=== PATIENT | female | born 1940 | race Caucasian/White ===

== ENCOUNTER 2018-01-05 12:44 | Inpatient (IN) | payer MEDICARE ==
[~2018-01-05] VITALS: Ht 149.9 cm; Wt 89.6 kg
[2018-01-05] VITALS (12 sets, daily range): BP systolic 100–138; BP diastolic 52–79
[~2018-01-05 12:44] MED LIST: DIPHENHYDRAM25 M2 PO; FIORICET PO; FLEXERIL OR; LISINOPRIL10 MG PO; LISINOPRIL20 MG PO; NEXIUM40 M1 PO; TAM75CAP PO; ULTRAM50 M1 PO; ULTRAM50 MG PO; ZOFRAN ODT4 MG PO
--- NOTE | 2018-01-05 12:56 | NUR ---
PT ARRIVES BY EMS, HR 143.
[2018-01-05 13:24] LABS: IMMATURE GRANULOCYTES 0.1 % (0.0-1.0); MEAN CORPUSCULAR HGB 27.4 pG CALC (26.0-32.0); MEAN CORPUSCULAR HGB CONC 32.6 g/L CALC (32.0-36.0); RED BLOOD COUNT 4.89 mill/uL (4.20-5.60); RED CELL DISTRI WIDTH 14.1 % (11.5-15.5)
[2018-01-05 13:33] LABS: ACT PARTIAL THROMBO TIME 28.8 SECONDS (20.0-32.5); ALBUMIN 4.1 g/dL (3.2-5.0); ALKALINE PHOSPHATASE 96 u/l (38-126); ANION GAP 17 (6-22 (CALC)); BILIRUBIN, TOTAL 0.4 mg/dL (0.0-1.4); BUN 14 mg/dL (8-23); BUN/CREATININE RATIO 20 (12-20 (CALC)); CARBON DIOXIDE 25 mmol/l (22-30); CHLORIDE 105 mmol/l (95-108); CREATININE 0.7 mg/dL (0.5-1.0); GFR > 60 ML/MIN (>=60 (CALC)); GFR FOR AFR.AMER. > 60 ML/MIN (>=60 (CALC)); HEMATOCRIT 41.1 % (37.0-47.0); HEMOGLOBIN 13.4 g/dl (12.0-16.0); INTERNATIONAL NORMALIZED RATIO 0.9 RATIO (0.7-1.3); PROTHROMBIN TIME 10.3 SECONDS (9.0-12.5); SGOT/AST 23 u/l (9-36); SGPT/ALT 27 u/l (11-66); SODIUM 143 mmol/l (137-146); TOTAL PROTEIN 7.6 g/dL (6.3-8.2)
[2018-01-05 13:34] LABS: POTASSIUM 3.8 mmol/l (3.5-5.1)
--- NOTE | 2018-01-05 13:39 | NUR ---
2ND IV ESTABLISHED. LABS DRAWN. EKG COMPLETE. PORT XR COMPLETE. PT STATES 955 O2 IS "GOOD FOR HER", PLACED ON 2L NC. PT STATES SHE IS UNDER "EXTRA STRESS AT HOME". PT C/O CP, SOB, NAUSEA, VOMITING, INCREASED HR SINCE 0900 THIS AM. PT TOOK NITRO x3, TYLENOL x2, 5MG VALIUM PRIOR TO EMS ARRIVAL. EMS GAVE 20MG CARDIZEM, PLACED PT ON 4L NC. BGL 126. PT DENIES PAIN SINCE CARDIZEM GIVEN BY EMS. PT TALKATIVE/ALERT WITH STAFF. 1+ EDEMA TO BILATERAL LEGS. SKIN DRY/WARM. BREATHING EVEN/UNLABORED. MILD CRACKLES AT BASE OF BOTH LUNGS. ABD OBESE, SOFT/NONTENDER.
[2018-01-05 13:45] LABS: MYOGLOBIN 37 ng/mL (0 - 62)
--- NOTE | 2018-01-05 14:26 | NUR ---
CARDIZEM TITRATED TO 12MG/HR. HR IN 120'S-130'S.
--- NOTE | 2018-01-05 14:26 | NUR ---
PT C/O NC TICKLING NOSE. O2 BUMPED DOWN TO 1L. DAUGHTER AT BEDSIDE. PT HAS A DNR THAT NEEDS SIGNATURES. DAUGHTER IS TAKING IT HOME TO COMPLETE IT & WILL BRING IT BACK.
[2018-01-05] MEDS ORDERED: DITROPAN PO (15:14)
--- NOTE | 2018-01-05 15:20 | NUR ---
Admission Note Report Given to: AZEEM Transported by: Wheelchair X Stretcher Transported with: X Nurse Transporter X Patent IV X O2 X Tanning Salon Attendant
--- NOTE | 2018-01-05 15:40 | NUR ---
PT TRANSFERED TO ICU 2 BY STRETCHER WITH TELE IN STABLE CONDITION.
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
--- NOTE | 2018-01-05 16:00 | NUR ---
PT RESTING ICE WATER PROVIDED FAMILY MEMBERS REMAIN AT BEDSIDE
--- NOTE | 2018-01-05 16:40 | NUR ---
INTO SEE PATIENT, PLAN OF CARE DISCUSSED, OFFERS NO COMPLAINTS OF PAIN, CALL WELLS WITHIN REACH, EDUCATED REGARDING MEAL TIMES AND DINNER TRAY ORDERED, WILL CONTINUE TO MONITOR.
--- NOTE | 2018-01-05 17:09 | NUR ---
FAMILY LEFT AT THIS TIME, PLACED PT ON BED GAINES, PT ABLE TO ROLL WELL IN BED ASKING TO STAY ON GAINES FOR A FEW MINUTES, CALL WELLS WITHIN REACH.
--- NOTE | 2018-01-05 17:15 | NUR ---
RAGHU CARE PROVIDED, PT REPOSITIONED FOR COMFORT AND SET UP ASSIST PROVIDED FRO PM MEAL, CALL WELLS WITHIN REACH
--- NOTE | 2018-01-05 17:52 | NUR ---
PT OOB TO BSC WITH ONE MOD ASSIST, CALL WELLS WITHIN REACH, INSTRUCTED TO CALL FOR ASSIST WHEN COMPLETE
--- NOTE | 2018-01-05 18:00 | NUR ---
PT BACK TO BED WITH ONE MOD ASSIST, CONTINENT OF 200 ML YELLOW URINE, SELF RAGHU CARE COMPLETED, REPOSITIONED FOR COMFORT, CALL WELLS WITHIN REACH, WILL CONTINUE TO MONITOR.
--- NOTE | 2018-01-05 18:30 | NUR ---
FAMILY MEMBER AT BEDSIDE, CALL WELLS WITHIN REACH.
--- NOTE | 2018-01-05 18:45 | NUR ---
REPORT FROM JORDYN GANN. ASSUMED PT. CARE.
--- NOTE | 2018-01-05 19:30 | NUR ---
PT. FOUND AWAKE, ALERT, ORIENTED X 3. SKIN WARM AND DRY. GIOVANY. AFEBRILE. PT. ASSISTED TO BSC. APPROX 250 CC OUT AT THIS TIME. MODERATE INCONTINENCE OF URINE NOTED AT THIS TIME. ALL LINENS AND GOWN CHANGED.
--- NOTE | 2018-01-05 20:00 | NUR ---
CARDIZEM DRIP INCREASED TO 15 MG/HR AT THIS TIME HR REMAINS IN THE UPPER 90-110'S IN A-RIB. WILL CONTINUE TO ASSESS FOR TITRATION NEEDS AND RHYTHM CHANGES. DENIES OTHER COMPLAINTS AT THIS TIME. WILL NOTIFY PHYSICIAN OF REQUEST FOR OXYBUTYNIN AND TYLENOL.
--- NOTE | 2018-01-05 20:53 | NUR ---
LAB AT BEDSIDE AT THIS TIME FOR PTT CHECK. WILL ADJUST NECESSARY.
--- NOTE | 2018-01-05 21:07 | NUR ---
PT. MEDICATED PER PROVIDER ORDERS. PROVIDED WITH FANNY MESSER. WATER FRESHED UP. OFFERED BSC, DECLINES AT THIS TIME. DENIES OTHER COMPLAINTS OR NEEDS.
--- NOTE | 2018-01-05 22:15 | NUR ---
PT. RESTING IN BED WITH EYES CLOSED. DENIES COMPLAINTS OF PAIN OR NEED. RESPS EVEN AND UNLABORED. SKIN WARM AND DRY. REMAINS A-FIB RATE CONTROLLED IN THE 70-90'S. CARDIZEM DRIP CONTINUES AT 15 MG/HR. WILL CONTINUE TO MONITOR.
--- NOTE | 2018-01-05 23:28 | NUR ---
PT. ASSISTED TO BSC. WITH EXERTION, PT. HR. ELEVATED TO 100-110'S A-FIB. REMAINS ON CARDIZEM DRIP AT 15 MG/HR. PT. AMBULATORY WITH MIN ASSIST TO BSC. APPROX 250 CC URINE OUT AT THIS TIME. DENIES COMPLAINTS OF PAIN OR NEED AT THIS TIME.
[2018-01-06] VITALS (11 sets, daily range): BP systolic 106–143; BP diastolic 62–79
--- NOTE | 2018-01-06 01:30 | NUR ---
PT. CONVERTED TO SINUS RHYTHM. RATE IN THE UPPER 50'S. RT. CALLED FOR EKG AT THIS TIME.
--- NOTE | 2018-01-06 02:00 | NUR ---
PT. ASSISTED TO BSC. APPROX 200 CC URINE OUT AT THIS TIME. MEDICATED FOR 6/10 BACK PAIN. WILL CONTINUE TO MONITOR. REMAINS SINUS RHTYHM AT THIS TIME.
[2018-01-06 03:10] LABS: HEMOGLOBIN 12.5 g/dl (12.0-16.0); IMMATURE GRANULOCYTES 0.2 % (0.0-1.0); MEAN CELL VOLUME 85.2 fL CALC (80.0-100.0); MEAN CORPUSCULAR HGB 27.3 pG CALC (26.0-32.0); MEAN CORPUSCULAR HGB CONC 32.1 g/L CALC (32.0-36.0); NEUT# 2.72 thou/uL (2.00-7.15); RED BLOOD COUNT 4.58 mill/uL (4.20-5.60); RED CELL DISTRI WIDTH 14.3 % (11.5-15.5)
[2018-01-06 03:24] LABS: ALBUMIN 3.5 g/dL (3.2-5.0); ALKALINE PHOSPHATASE 94 u/l (38-126); ANION GAP 15 (6-22 (CALC)); BILIRUBIN, TOTAL 0.5 mg/dL (0.0-1.4); BUN 12 mg/dL (8-23); BUN/CREATININE RATIO 20 (12-20 (CALC)); CARBON DIOXIDE 25 mmol/l (22-30); CHLORIDE 106 mmol/l (95-108); CREATININE 0.6 mg/dL (0.5-1.0); GFR > 60 ML/MIN (>=60 (CALC)); GFR FOR AFR.AMER. > 60 ML/MIN (>=60 (CALC)); POTASSIUM 3.8 mmol/l (3.5-5.1); SGOT/AST 19 u/l (9-36); SGPT/ALT 25 u/l (11-66); SODIUM 142 mmol/l (137-146); TOTAL PROTEIN 6.4 g/dL (6.3-8.2)
--- NOTE | 2018-01-06 08:38 | NUR ---
PT IS AWAKE, ALERT, ORIENTED X 3. MONITOR SHOWS SINUS RHYTHM WITHOUT ECTOPY, RATE OF 70. LUNGS CLEAR, ABDOMEN SOFT AND NONTENDER, PALPABLE PEDAL PULSES WITH MINIMAL EDEMA. PT SEEN BY RHIANNA GREEN THIS MORNING, PLAN OF CARE REVIEWED.
[2018-01-06 10:21] LABS: HEMATOCRIT 39.9 % (37.0-47.0); HEMOGLOBIN 12.6 g/dl (12.0-16.0); IMMATURE GRANULOCYTES 0.2 % (0.0-1.0); MEAN CORPUSCULAR HGB 27.2 pG CALC (26.0-32.0); MEAN CORPUSCULAR HGB CONC 31.6 g/L CALC (32.0-36.0); NEUT# 2.87 thou/uL (2.00-7.15); RED BLOOD COUNT 4.64 mill/uL (4.20-5.60); RED CELL DISTRI WIDTH 14.4 % (11.5-15.5)
--- NOTE | 2018-01-06 10:33 | NUR ---
LOPRESSOR PROVIDED THIS MORNING, THEN CARDIZEM DRIP WAS DISCONTINUED. PT HAS REMAINED IN SINUS RHYTHM, RATE 62. PT HAS ALSO WASHED UP THIS MORNING, GOWN CHANGED.
--- NOTE | 2018-01-06 11:16 | NUR ---
PT SEEN BY DR SPENCE THIS AM, PLAN IS TO DISCHARGE PT HOME PER REGULAR RHYTHM AND NO NEED FOR ANTICOAGULATION. PT PLEASED SHE CARES FOR HER AILING AT HOME. NO DISTRESS, NO COMPLAINTS.
[2018-01-06] MEDS ORDERED: ELIQUIS2.5 MG PO (11:37)
[2018-01-06] MEDS ORDERED: LOPRESSOR25 MG PO (11:38)
--- NOTE | 2018-01-06 12:43 | NUR ---
PT HAS BEEN DISCHARGED TO HOME. IVs WERE DISCONTINUED, MONITORS REMOVED. PT VERBALIZED UNDERSTANDING OF DC INSTRUCTIONS, TAKEN TO VEHICLE BY WHEELCHAIR. PT LEAVES IN STABLE CONDITION, NSR.
== END 2018-01-06 12:40 | disposition home or self-care (01) | DRG 310 ==
LOC: ED 12:44 → ED-I 14:40 → ED 15:04 → ICU 15:05
PROVIDERS: ADMIT Internal Medicine; ATTEND Internal Medicine
PROC: 3E0234Z Introduction of Serum, Toxoid and Vaccine into Muscle, Percutaneous Approach (ICD-10-PCS; principal; 2018-01-06)
DX: I48.0 Paroxysmal atrial fibrillation (principal); I10 Essential (primary) hypertension; K21.9 Gastro-esophageal reflux disease without esophagitis; J11.1 Influenza due to unidentified influenza virus with other respiratory manifestations; Z23 Encounter for immunization

== ENCOUNTER 2019-02-04 15:46 | Observation (INO) | payer OTHER ==
[~2019-02-04] VITALS: Ht 149.9 cm; Wt 84.5 kg
[2019-02-04] VITALS (17 sets, daily range): BP systolic 101–154; BP diastolic 56–83
[~2019-02-04 15:46] MED LIST changes: +DITROPAN PO; +ELIQUIS2.5 MG PO; +LOPRESSOR25 MG PO
--- NOTE | 2019-02-04 15:46 | NUR ---
PT TO ROOM VIA EMS
[2019-02-04 16:23] LABS: HEMATOCRIT 40.2 % (37.0-47.0); HEMOGLOBIN 12.9 g/dl (12.0-16.0); IMMATURE GRANULOCYTES 0.3 % (0.0-5.0); MEAN CELL VOLUME 83.6 fL CALC (80.0-100.0); MEAN CORPUSCULAR HGB 26.8 pG CALC (26.0-32.0); MEAN CORPUSCULAR HGB CONC 32.1 g/L CALC (32.0-36.0); NEUT# 4.19 thou/uL (2.00-7.15); RED BLOOD COUNT 4.81 mill/uL (4.20-5.60); RED CELL DISTRI WIDTH 13.8 % (11.5-15.5)
--- NOTE | 2019-02-04 16:25 | NUR ---
PT PROVIDED CARDIZEM 10 MG BOLUS FROM BAG, NOW DRIP CONTINUES AT 10 MG/HR. HR 105-115 NOW.
[2019-02-04 16:34] LABS: ANION GAP 15 (6-22 (CALC)); BUN 10 mg/dL (8-23); BUN/CREATININE RATIO 16 (12-20 (CALC)); CARBON DIOXIDE 24 mmol/l (22-30); CHLORIDE 106 mmol/l (95-108); CREATININE 0.6 mg/dL (0.5-1.0); GFR > 60 ML/MIN (>=60 (CALC)); GFR FOR AFR.AMER. > 60 ML/MIN (>=60 (CALC)); POTASSIUM 3.6 mmol/l (3.5-5.1); SODIUM 142 mmol/l (137-146)
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
--- NOTE | 2019-02-04 18:25 | NUR ---
REPORT PROVIDED TO MADIHA FOX TAKEN TO ICU-1 WITHOUT INCIDENT.
--- NOTE | 2019-02-04 18:30 | NUR ---
TITRATED CARDIZEM PER TITRATION RECORD TO 5MG.
--- NOTE | 2019-02-04 18:41 | NUR ---
PHARMACY CONSULT PLACED. PT STATES SHE DOES NOT KNOW HER HOME MEDS.
--- NOTE | 2019-02-04 19:12 | NUR ---
BEDSIDE REPORT RECEIVED FROM JORDYN FOX. PT CURRENTLY AFIB ON TELE RATE OF 95.
--- NOTE | 2019-02-04 20:06 | NUR ---
ASSESSMENT COMPLETE. PT UP TO BSC X 1 PERSON ASSIST; INCONTINENT OF LARGE AMOUNT OF URINE; USES PULL UP BRIEF. STATES THAT HEADACHE IS BETTER AND DENIES PAIN CURRENTLY. RESPIRATIONS EVEN AND UNLABORED ON ROOM AIR. CARDIZEM INFUSING AT 5MG/HR ALONG WITH MAINENANCE FLUIDS; EMS IV SITE APPEARS HEALTHY TO LAC. ASSESSMENT NEGATIVE EXCEPT FOR IRREGULAR HEART RATE AND TENDERNESS TO LEGS WITH PALPATION. PLAN OF CARE REVIEWED. PT ENCOURAGED TO VERBALIZE CONCERNS. STATES UNDERSTANDING. SAFETY MEASURES IN PLACE. CALL LIGHT WITHIN REACH.
--- NOTE | 2019-02-04 21:44 | NUR ---
VS STABLE; MONITORING HOURLY. PT TALKATIVE ABOUT FAMILY. ASSISTED WITH REPOSITIONING FOR COMFORT. ONLY REQUEST IS FOR WATER AT BEDSIDE FOR DRY MOUTH R/T HOME MEDICATION.
--- NOTE | 2019-02-04 23:52 | NUR ---
PT REQUESTING TO SIT UP IN HIGHER IN THE BED STATING THAT SHE ONLY SLEEPS A FEW HOURS AT A TIME. DENIES PAIN. RESPIRATIONS EVEN AND UNLABORED ON ROOM AIR. REMAINS AFIB ON TELEMETRY. CARDIZEM CONTINUES TO INFUSE AT 5MG/HR; IV SITE APPEARS HEALTHY. SAFETY MEASURES IN PLACE. CALL LIGHT WITHIN REACH.
[2019-02-05] VITALS (20 sets, daily range): BP systolic 115–169; BP diastolic 56–75
--- NOTE | 2019-02-05 00:29 | NUR ---
CARDIZEM DRIP TITRATED DOWN TO 2.5MG/HR FOR HEART RATE OF 60 BPM. WILL CONTINUE TO MONITOR.
--- NOTE | 2019-02-05 00:51 | NUR ---
HEART RATE REMAINS 60-63; CARDIZEM DRIP DISCONTINUED. PT WATCHING TV AND NO SIGNS OF DISTRESS.
--- NOTE | 2019-02-05 00:55 | NUR ---
HEART RHYTHM CONVERTED TO SINUS RHYTHM; RATE OF 60 BPM.
--- NOTE | 2019-02-05 02:20 | NUR ---
PT ASLEEP WITH NO SIGNS OF DISTRESS. RESPIRATIONS EVEN AND UNLABORED ON ROOM AIR. 95% ON ROOM AIR. VS STABLE. SINUS RHYTHM ON TELE. SAFETY MEASURES IN PLACE. CALL LIGHT WITHIN REACH.
--- NOTE | 2019-02-05 03:21 | NUR ---
INCONTINENT OF LARGE AMOUNT OF URINE; ASSISTED TO BSC FOR HYGIENE. PT IS ONE PERSON ASSIST; VERY SLOW WITH MOVEMENTS; REPORTS THAT SHE USES A WHEELCHAIR AND WALKER AT HOME. STATES THAT SHE HAS ONLY FALLEN ONCE IN THE LAST 3 YEARS.
--- NOTE | 2019-02-05 04:42 | NUR ---
LAB AT BEDSIDE.
[2019-02-05 05:03] LABS: HEMOGLOBIN 11.6 g/dl (12.0-16.0); IMMATURE GRANULOCYTES 0.2 % (0.0-5.0); MEAN CELL VOLUME 84.9 fL CALC (80.0-100.0); MEAN CORPUSCULAR HGB 26.6 pG CALC (26.0-32.0); MEAN CORPUSCULAR HGB CONC 31.4 g/L CALC (32.0-36.0); NEUT# 3.18 thou/uL (2.00-7.15); RED BLOOD COUNT 4.36 mill/uL (4.20-5.60)
[2019-02-05 05:35] LABS: ALBUMIN 3.8 g/dL (3.2-5.0); ALKALINE PHOSPHATASE 74 u/l (38-126); ANION GAP 13 (6-22 (CALC)); BILIRUBIN, TOTAL 0.5 mg/dL (0.0-1.4); BUN 14 mg/dL (8-23); BUN/CREATININE RATIO 20 (12-20 (CALC)); CARBON DIOXIDE 25 mmol/l (22-30); CHLORIDE 107 mmol/l (95-108); CREATININE 0.7 mg/dL (0.5-1.0); GFR > 60 ML/MIN (>=60 (CALC)); GFR FOR AFR.AMER. > 60 ML/MIN (>=60 (CALC)); MAGNESIUM 1.9 mg/dL (1.6-2.3); POTASSIUM 4.3 mmol/l (3.5-5.1); SGOT/AST 13 u/l (9-36); SODIUM 140 mmol/l (137-146); TOTAL PROTEIN 6.2 g/dL (6.3-8.2)
--- NOTE | 2019-02-05 06:18 | NUR ---
PT SITTING UP IN BED WATCHING TV; ALERT AND ORIENTED. DENIES PAIN. RESPIRATIONS EVEN AND UNLABORED ON ROOM AIR. NO REQUESTS OR CONCERNS AT THIS TIME. SAFETY MEASURES IN PLACE. CALL LIGHT WITHIN REACH.
--- NOTE | 2019-02-05 07:11 | NUR ---
PT ASSISTED UP TO BSC WITH MINIMAL ASSISTANCE. PT STATES SHES SLOW MOVING BUT SHE CAN DO IT.
--- NOTE | 2019-02-05 07:24 | NUR ---
PT A&Ox4. PLEASANT, COOPERATIVE. DENIES ANY PAIN. KENDRICK, BUT IS SLOW MOVING. STRONG PULSES. OBESE BUT NO EDEMA. -3 SEC CAP REFILL. SR ON TELE @63. SPEECH CLEAR. EYES PERRLA @3. ABD SOFT/NONTENDER. DENIES N/V/D. ACTIVE BS. BREATHING EVEN/UNLABORED, LUNGS CTA. PT STATES SHE IS READY TO GO HOME TODAY. PT GIVEN DR XIONG'S INFORMATION.
--- NOTE | 2019-02-05 09:02 | NUR ---
PT SITTING UP ON BSC. GIVING SELF BATH, BRUSHING TEETH.
--- NOTE | 2019-02-05 09:31 | NUR ---
DR MILLER @BEDSIDE WITH PT.
--- NOTE | 2019-02-05 09:37 | NUR ---
PHARMACY @BEDSIDE WITH PT.
[2019-02-05] MEDS ORDERED: LOPRESSOR 550 MG/TAB PO (10:01)
[2019-02-05] MEDS ORDERED: PANTOPRAZOLE SO40 M1 PO (10:01)
[2019-02-05] MEDS ORDERED: ELIQUIS2.5 MG PO (10:01)
--- NOTE | 2019-02-05 10:20 | NUR ---
XI @[facility]
--- NOTE | 2019-02-05 10:48 | NUR ---
IV DC'D, TIP INTACT, DRESSING APPLIED. PT STATES HER SON WONT BE ABLE TO COME GET HER UNTIL NOON. PT LEFT ON MONITORS AT THIS TIME. PT IS VERY TALKATIVE.
--- NOTE | 2019-02-05 10:59 | NUR ---
PT ASSISTED UP TO BSC FOR URINATION, USING WALKER.
--- NOTE | 2019-02-05 11:29 | NUR ---
PT SITTING ON SIDE OF BED, EATING LUNCH. CHANGED FROM GOWN TO PERSONAL CLOTHES WITH MINIMAL HELP. EDUCATED PT ON DC INSTRUCTIONS, INCLUDING NEW RX & STOP LISINOPRIL, & F/UP WITH CARDIO. PT VERBALIZED UNDERSTANDING.
--- NOTE | 2019-02-05 12:10 | NUR ---
PT OUT THE DOOR WITH AUX BY WC WITH SON IN STABLE CONDITION.
== END 2019-02-05 12:10 | disposition home or self-care (01) ==
LOC: ED 15:46 → ED-I 17:03 → ED 17:26 → ICU 17:27
PROVIDERS: Family Medicine; ADMIT Internal Medicine Nephrology; ATTEND Internal Medicine Nephrology
DX: I48.0 Paroxysmal atrial fibrillation (principal); I10 Essential (primary) hypertension; K21.9 Gastro-esophageal reflux disease without esophagitis; R53.1 Weakness; E66.9 Obesity, unspecified; M19.90 Unspecified osteoarthritis, unspecified site; Z68.37 Body mass index [BMI] 37.0-37.9, adult; Z98.890 Other specified postprocedural states; R07.9 Chest pain, unspecified

== ENCOUNTER 2019-07-10 11:23 | Emergency (ER) | payer MEDICAID ==
[~2019-07-10] VITALS: Ht 149.9 cm; Wt 65.0 kg
[~2019-07-10 11:23] MED LIST changes: +LOPRESSOR 550 MG/TAB PO; +PANTOPRAZOLE SO40 M1 PO
[2019-07-10 12:11] LABS: URINE BILIRUBIN - DIPSTICK NEGATIVE (NEGATIVE); URINE BLOOD DIPSTICK NEGATIVE (NEGATIVE); URINE COLOR YELLOW; URINE GLUCOSE - DIPSTICK NEGATIVE (NEGATIVE); URINE KETONE NEGATIVE (NEGATIVE); URINE LEUK ESTERASE NEGATIVE (NEGATIVE); URINE NITRITE - DIPSTICK NEGATIVE (Negative); URINE PROTEIN - DIPSTICK NEGATIVE (NEG-TRACE); URINE SPECIFIC GRAVITY 1.025; URINE UROBILINOGEN - DIPSTICK 0.2 E.U./dL (0.2)
[2019-07-10] MEDS ORDERED: BACTRIM DS1 TAB PO (12:25)
[2019-07-10 12:31] VITALS: BP 147/88
== END 2019-07-10 12:31 | disposition home or self-care (01) ==
LOC: ED 11:23
PROVIDERS: Family Medicine
DX: N32.81 Overactive bladder (principal); K05.10 Chronic gingivitis, plaque induced; I10 Essential (primary) hypertension

== ENCOUNTER 2020-03-27 07:20 | Day surgery (SDC) | payer MEDICARE, MEDICAID ==
[~2020-03-27] VITALS: Ht 149.9 cm; Wt 84.0 kg
[~2020-03-27 07:20] MED LIST changes: +ACETAMINOPHEN500 MG PO; +ASPIRIN81 MG PO; +BACTRIM DS1 TAB PO; +DILTIAZEM90 M1 PO; -DITROPAN PO; +DITROPAN5 MG/TA1 PO; +MYRBETRIQ50 MG PO; +PROTONIX40 M2 PO
[2020-03-27] MEDS ORDERED: ADULT ASPIRIN R81 MG PO (09:55)
[2020-03-27 10:20] VITALS: BP 177/80
== END 2020-03-27 10:50 | disposition home or self-care (01) ==
LOC: ORM 07:20
PROVIDERS: ATTEND Urology
PROC: 3E0K8GC Introduction of Other Therapeutic Substance into Genitourinary Tract, Via Natural or Artificial Opening Endoscopic (ICD-10-PCS; principal; 2020-03-27)
DX: N39.46 Mixed incontinence (principal); N32.81 Overactive bladder; E66.9 Obesity, unspecified; Z68.36 Body mass index [BMI] 36.0-36.9, adult; Z79.899 Other long term (current) drug therapy; Z87.440 Personal history of urinary (tract) infections; Z11.59 Encounter for screening for other viral diseases
CPT/HCPCS: J0585; J1100

== ENCOUNTER 2020-04-10 10:05 | Emergency (ER) | payer MEDICARE, MEDICAID ==
[~2020-04-10] VITALS: Ht 149.9 cm; Wt 85.0 kg
[~2020-04-10 10:05] MED LIST changes: +ADULT ASPIRIN R81 MG PO
[2020-04-10 10:48] LABS: HEMATOCRIT 39.1 % (37.0-47.0); IMMATURE GRANULOCYTES 0.6 % (0.0-5.0); MEAN CELL VOLUME 84.8 fL CALC (80.0-100.0); MEAN CORPUSCULAR HGB CONC 30.7 g/dL CAL (32.0-36.0); NEUT# 6.45 thou/uL (2.00-7.15); RED BLOOD COUNT 4.61 mill/uL (4.20-5.60); RED CELL DISTRI WIDTH 14.3 % (11.5-15.5)
[2020-04-10 10:59] LABS: ALBUMIN 4.3 g/dL (3.2-5.0); ANION GAP 13 (6-22 (CALC)); BILIRUBIN, TOTAL 0.6 mg/dL (0.0-1.4); BUN 14 mg/dL (8-23); BUN/CREATININE RATIO 22 (12-20 (CALC)); CARBON DIOXIDE 23 mmol/l (22-30); CHLORIDE 105 mmol/l (95-108); CREATININE 0.6 mg/dL (0.5-1.0); GFR > 60 ML/MIN (>=60 (CALC)); GFR FOR AFR.AMER. > 60 ML/MIN (>=60 (CALC)); POTASSIUM 3.8 mmol/l (3.5-5.1); SODIUM 137 mmol/l (137-146); TOTAL PROTEIN 7.2 g/dL (6.3-8.2)
[2020-04-10 11:01] LABS: ALKALINE PHOSPHATASE 155 u/l (38-126); SGOT/AST 29 u/l (9-36)
[2020-04-10 11:09] LABS: URINE BILIRUBIN - DIPSTICK NEGATIVE (NEGATIVE); URINE BLOOD DIPSTICK TRACE-LYSED (NEGATIVE); URINE COLOR YELLOW; URINE GLUCOSE - DIPSTICK NEGATIVE (NEGATIVE); URINE KETONE NEGATIVE (NEGATIVE); URINE LEUK ESTERASE NEGATIVE (NEGATIVE); URINE NITRITE - DIPSTICK NEGATIVE (Negative); URINE PH 5.5 (4.5-8.0); URINE PROTEIN - DIPSTICK NEGATIVE (NEG-TRACE); URINE UROBILINOGEN - DIPSTICK 0.2 E.U./dL (0.2)
[2020-04-10] MEDS ORDERED: AUGMENTIN500TAB PO (11:34)
[2020-04-10] MEDS ORDERED: OMNI-PAC300 MG PO (11:37)
[2020-04-10] MEDS ORDERED: PYRIDIUM200 MG PO ×2 (12:08)
[2020-04-10 12:20] VITALS: BP 166/72
== END 2020-04-10 12:20 | disposition home or self-care (01) ==
LOC: ED 10:05
PROVIDERS: Family Medicine
DX: N39.0 Urinary tract infection, site not specified (principal); B96.5 Pseudomonas (aeruginosa) (mallei) (pseudomallei) as the cause of diseases classified elsewhere; I10 Essential (primary) hypertension; Z20.828 Contact with and (suspected) exposure to other viral communicable diseases; R06.02 Shortness of breath

== ENCOUNTER 2020-05-10 19:54 | Inpatient (IN) | payer MEDICARE, MEDICAID ==
[~2020-05-10] VITALS: Ht 149.9 cm; Wt 94.3 kg
[~2020-05-10 19:54] MED LIST changes: +AUGMENTIN500TAB PO; +OMNI-PAC300 MG PO; +PYRIDIUM200 MG PO
--- NOTE | 2020-05-10 19:55 | NUR ---
PATIENT TO ROOM 10 VIA EMS STRETCHER. UNDRESSED INTO A GOWN. TRIAGE COMPLETED AT BEDSIDE. PATIENT PLACED ON MONITOR. MD AT BEDSIDE FOR EVAL.
[2020-05-10 20:48] LABS: HEMATOCRIT 41.9 % (37.0-47.0); HEMOGLOBIN 12.8 g/dl (12.0-16.0); IMMATURE GRANULOCYTES 0.3 % (0.0-5.0); MEAN CELL VOLUME 84.6 fL CALC (80.0-100.0); MEAN CORPUSCULAR HGB 25.9 pG CALC (26.0-32.0); MEAN CORPUSCULAR HGB CONC 30.5 g/dL CAL (32.0-36.0); NEUT# 4.87 thou/uL (2.00-7.15); RED BLOOD COUNT 4.95 mill/uL (4.20-5.60); RED CELL DISTRI WIDTH 14.1 % (11.5-15.5)
--- NOTE | 2020-05-10 20:55 | NUR ---
IN TO CHANGE PT'S DEPEND. DIAPER IS SO FULL IT FLOWED UNTO SHEET. PT TOLERATED WELL.
[2020-05-10 21:03] LABS: ALBUMIN 4.3 g/dL (3.2-5.0); ALKALINE PHOSPHATASE 117 u/l (38-126); ANION GAP 13 (6-22 (CALC)); BILIRUBIN, TOTAL 0.4 mg/dL (0.0-1.4); BUN 13 mg/dL (8-23); BUN/CREATININE RATIO 19 (12-20 (CALC)); CARBON DIOXIDE 24 mmol/l (22-30); CHLORIDE 109 mmol/l (95-108); CREATININE 0.7 mg/dL (0.5-1.0); GFR > 60 ML/MIN (>=60 (CALC)); GFR FOR AFR.AMER. > 60 ML/MIN (>=60 (CALC)); POTASSIUM 3.4 mmol/l (3.5-5.1); SGOT/AST 26 u/l (9-36); SODIUM 142 mmol/l (137-146); TOTAL PROTEIN 7.4 g/dL (6.3-8.2)
[2020-05-10 21:06] LABS: ACT PARTIAL THROMBO TIME 26.2 SECONDS (20.0-32.5); PROTHROMBIN TIME 9.9 SECONDS (9.0-12.5)
[2020-05-10 21:15] LABS: MYOGLOBIN 22 ng/mL (0 - 62)
--- NOTE | 2020-05-10 21:39 | NUR ---
PT'S HR GOES FROM 119-150 CARDIZEM GOING AT 15ML/HR
[2020-05-10] MEDS ORDERED: PROTONIX40 M2 PO (22:06)
--- NOTE | 2020-05-10 22:20 | NUR ---
ADMIT ORDERS RECEIVED.
--- NOTE | 2020-05-10 22:40 | NUR ---
REPORT CALLED TO JORDYN MURRAY IN ICU. WILL TRANSPORT PT IN 10 MIN
--- NOTE | 2020-05-10 22:40 | NUR ---
TELEPHONE REPORT RECEIEVED FROM Ruben BATES RN IN ED. ICU ROOM #6 PREPARED FOR PATIENT.
--- NOTE | 2020-05-10 22:56 | NUR ---
INCREASED CARDIZEM DRIP TO 20ML HR. HR STILL AFIB FROM 119-160 B/P 166/70
--- NOTE | 2020-05-10 22:56 | NUR ---
Admission Note Report Given to: JORDYN MURRAY Transported by: Wheelchair X Stretcher Transported with: X Nurse Transporter X Patent IV O2 X Graphics Edit Technician Location: X ICU MS2
[2020-05-10 23:15] VITALS: BP 121/73
--- NOTE | 2020-05-10 23:20 | NUR ---
PT ARRIVES TO UNIT VIA STRETCHER, ACCOMPANIED BY Ruben MORTON RN. PT AMBULATORY TO BED W/ WALKER AND ASSIST OF 1. GAIT IS WEAK AND UNSTEADY. PT AGREES TO USE CALL WELLS AND NOT ATTEMPT TO GET OOB ALONE. PT ORIENTED TO ROOM, BED CONTROLS, TV/LIGHT/CALL WELLS SYSTEM. CALL WELLS WITHIN REACH, AGREES TO CALL PRN.
[2020-05-10 23:30] VITALS: BP 126/74
--- NOTE | 2020-05-10 23:45 | NUR ---
ADMISSION AND PHYSICAL ASSESMENT COMPLETE. PLAN OF CARE REVIEWED. PT VERBALIZES UNDERSTANDING AND DENIES QUESTIONS. WHEN ASKED PT REQUEST WATER AND EXTRA BLANKETS. PROVIDED PER PTS REQUEST. PT DENIES FURTHER NEEDS AT THIS TIME. ITEMS WITHIN REACH. BED LOCKED AND IN LOW POSITION W/ BED RAILS UP X2. CALL WELLS WITHIN REACH, AGREES TO CALL PRN.
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
[2020-05-11] VITALS (32 sets, daily range): BP systolic 96–158; BP diastolic 48–85
--- NOTE | 2020-05-11 00:15 | NUR ---
IRRIGATOR VALVE PIPE KISHA IN ROOM TO DRAW TROPONIN LEVEL.
--- NOTE | 2020-05-11 00:55 | NUR ---
TROPONIN RESULT REVIEWED, TROPONIN 0.021ng/ml.
--- NOTE | 2020-05-11 01:06 | NUR ---
PT APPEARS TO BE RESTING COMFORTABLY, RESPIRATIONS REGULAR AND UNLABORED, NO APPARENT DISTRESS OR DISCOMFORT NOTED. ON MONITOR PT REMAINS IN AFIB WITH A RATE OF 105bpm. CALL WELLS REMAINS WITHIN REACH.
--- NOTE | 2020-05-11 03:02 | NUR ---
NEW BAG CARDIZEM INITIATED, RATE DECREASED TO 20ML/HOUR. NIBP 117/70, AFIB WITH A RATE BETWEEN 70'S AND 90'S.
--- NOTE | 2020-05-11 05:00 | NUR ---
PUREWICK TUBING DISCONNECTED, PT INCONTINENT OF URINE, PERICARE COMPLETE AND LINENS CHANGED W/ ASSIST FROM Libby BENSON RN. URINE NOTED TO BE BRIGHT YELLOWISH-ORANGE. ASSUMED SECONDARY TO PYRIDIUM DOSE IN ED. NEW PUREWICK SECURED IN PLACE. CARDIZEM GTT DECREASED TO 15ML/H. PT DENIES FURTHER NEEDS, CALL WELLS WITHIN REACH, AGREES TO CALL PRN.
--- NOTE | 2020-05-11 05:59 | NUR ---
KISHA WELDING PANTOGRAPH MACHINE OPERATOR IN ROOM TO COLLECT AM LABWORK.
--- NOTE | 2020-05-11 06:05 | NUR ---
SINCE PT IS INCONTINENT, URINE SAMPLE FOR U/A COLLECTED FROM [employer] COLLECTION CANISTER AND SENT TO LAB. URINE IS CLEAR AND BRIGHT ORANGE.
[2020-05-11 06:21] LABS: URINE BILIRUBIN - DIPSTICK NEGATIVE (NEGATIVE); URINE BLOOD DIPSTICK NEGATIVE (NEGATIVE); URINE COLOR ORANGE; URINE GLUCOSE - DIPSTICK 100 mg/dL (NEGATIVE); URINE KETONE NEGATIVE (NEGATIVE); URINE LEUK ESTERASE TRACE (NEGATIVE); URINE PROTEIN - DIPSTICK 30 mg/dL (NEG-TRACE)
[2020-05-11 06:26] LABS: URINE NITRITE - DIPSTICK POSITIVE (Negative)
[2020-05-11 06:37] LABS: CHOLESTEROL HDL RATIO 4.4 (<4.4 (CALC)); MAGNESIUM 1.9 mg/dL (1.6-2.3)
[2020-05-11 06:38] LABS: URINE BACTERIA FEW hpf; URINE SQUAMOUS EPITHELIAL CELL FEW EPI/hpf (0-FEW)
--- NOTE | 2020-05-11 06:45 | NUR ---
RECIEVED REPORT FROM JORDYN JADE. ASSUMED PT CARE.
--- NOTE | 2020-05-11 07:30 | NUR ---
PT A&OX4, ABLE TO MAKE NEEDS KNOWN. RESPIRATIONS EVEN/UNLABORED, SA02@ 93%RA. LS CLEAR THROUGHOUT. CARDIZEM AT 15MG/HR, TITRATED DOWN TO 10MG/HR. PT DENIES CP, SOB OR DISTRESS AT THIS TIME. ABDOMEN SOFT, NON-TENDER LBM 9-12-20. PT INC OF BLADDER, PUREWICK IN PLACE. RED URINE NOTED AT BSD VIA INTERMITTANT SUCTION. CALL LIGHT IN REACH. WILL MONITOR.
[2020-05-11] MEDS ORDERED: MYRBETRIQ50 MG PO (07:34)
[2020-05-11] MEDS ORDERED: CHOLESTYRAMINE4 G1 PO (07:35)
[2020-05-11] MEDS ORDERED: DITROPAN5 MG/TA1 PO (07:36)
--- NOTE | 2020-05-11 07:45 | NUR ---
PT REPOSITIONED. BREAKFAST TRAY SET UP.
--- NOTE | 2020-05-11 07:56 | NUR ---
DR. BORGES AT BEDSIDE FOR ASSESSMENT AND TO DISCUSS PLAN OF CARE. NEW ORDERS RECIEVED.
--- NOTE | 2020-05-11 09:40 | NUR ---
PT C/O NAUSEA, NO EMESIS NOTED. NASH BENITO NOTIFIED. NEW ORDERS RECIEVED. PT MEDICATED FOR N/V ORDERED PER PT REQUEST. CALL LIGHT IN REACH. WILL MONITOR.
--- NOTE | 2020-05-11 10:47 | NUR ---
ARIADNE FROM CM AT BEDSIDE TO DISCUSS PLAN OF CARE AND DISCHARGE PLANNING. CALL LIGHT IN REACH. WILL MONITOR.
--- NOTE | 2020-05-11 11:32 | NUR ---
PT note: Patient is screened for PT intervention and no needs are identified at this time
--- NOTE | 2020-05-11 11:47 | NUR ---
LAB AT BEDSIDE FOR BLOOD DRAW.
--- NOTE | 2020-05-11 12:04 | NUR ---
PT RESTING IN BED, REMAINS AFIB ON TELEMETRY, HR 69. NO DISTRESS NOTED. CALL LIGHT IN REACH.
--- NOTE | 2020-05-11 13:45 | NUR ---
PT ASSISTED WITH BEDPAN. PT STATED JUST GAS THIS TIME. CALL LIGHT IN REACH. WILL MONITOR.
--- NOTE | 2020-05-11 15:17 | NUR ---
PT RESTING IN BED, OFFERS NOT COMPLAINTS AT THIS TIME. CALL LIGHT IN REACH. WILL MONITOR.
--- NOTE | 2020-05-11 16:23 | NUR ---
PT ASSISTED WITH BEDPAN, MODERATE BM, BROWN SOFT. GOOD PERICARE PROVIDED. PT TOLERATED WELL. CALL LIGHT IN REACH. WILL MONITOR.
--- NOTE | 2020-05-11 17:00 | NUR ---
DIETARY ON UNIT. DINNER TRAY SET UP.
--- NOTE | 2020-05-11 18:03 | NUR ---
PT RESTING IN BED, RESPIRATIONS EVEN/UNLABORED, AFIB ON TELEMETRY, HR 75. PT DENIES CP, SOB OR DISTRESS AT THIS TIME. PUREWICK IN PLACE. CALL LIGHT IN REACH. WILL MONITOR.
--- NOTE | 2020-05-11 18:32 | NUR ---
PT MEDICATED FOR BLE PAIN 12/05 ORDERED PER PT REQUEST. WILL MONITOR.
--- NOTE | 2020-05-11 19:40 | NUR ---
RECEIVED REPORT. PT BEDRESTING. WATCHING TV. DENIES CHEST PAIN OR PALPATATIONS AT THIS TIME. IS OFF CARDIZEM FOR SEVERAL HOURS. IS IN SINUS RHYTHM AT A RATE OF 72. COLOR PINK. SKIN W/D. RESP EVEN AND NONLABORED. NO DISTRESS NOTED
--- NOTE | 2020-05-11 20:20 | NUR ---
RECEIVED REPORT FROM JORDYN ZAMBRANO.
--- NOTE | 2020-05-11 20:45 | NUR ---
PT. SITTING UP IN BED WITH NO DISTRESS NOTED; DENIES PAIN AT THIS TIME. STEWARD/STEWARDESS NIGHT IN PLACE AND READING SR AT THIS TIME. B/P WNL. VSS. SCHED MEDS GIVEN ALONG WITH PRN SONATA TO ASSIST WITH SLEEP PER PT'S REQUEST. PUREWIC IN PLACE AND EMPTIED OF 700MLS OF ORANGE URINE. PT. ABLE TO REPOSITION SELF IN BED. EMS SITE TO RAC AND PT. DECLINES WANTING IT CHANGED OUT; PATENT AND SHOWS NO S/S OF INFILTRATION. ENCOURAGED TO CALL FOR ANY NEEDS. CALL LIGHT IS IN REACH. WILL CONTINUE TO MONITOR.
--- NOTE | 2020-05-11 23:00 | NUR ---
PT. RESTING IN BE WITH NO DISTRESS NOTED; DENIES NEEDS. REMIANS SR ON THE MONITOR. CALL LIGHT IS IN REACH.
[2020-05-12] VITALS (7 sets, daily range): BP systolic 119–138; BP diastolic 61–71
--- NOTE | 2020-05-12 02:28 | NUR ---
PT. RESTING IN BED WITH EYES CLOSED; RESP. EVEN AND UNLABORED. NO DISTRESS NOTED; RAILROAD CARMAN IN PLACE AND READING SR WITH HR IN THE 60'S. CALL LIGHT IS IN REACH.
--- NOTE | 2020-05-12 04:00 | NUR ---
PT. PROVIDED WITH RAGHU CARE AND PURWIC CHANGED OUT. PT. ABLE TO REPOSITION SELF IN BED. REMAINS SR ON AIR BAG BUILDER. PO FLUIDS OFFERED. ENCOURAGED TO CALL FOR ANY NEEDS. CALL LIGHT IS IN REACH.
--- NOTE | 2020-05-12 08:49 | NUR ---
PT SITTING IN BED. A&O X3. NO DISTRESS NOTED. PT STATES PAIN IS DOING BETTER. BLE EDEMA NOTED. PUREWICK IN PLACE WITH ORANGE URINE NOTED. NO OTHER NEEDS AT THIS TIME. ASSESSMENT COMPLETED. DISCUSSED POC. CALL LIGHT IN REACH. CONTINUE TO MONITOR.
[2020-05-12] MEDS ORDERED: ESTRACE VAG0.1 MG/GM VA (09:04)
[2020-05-12] MEDS ORDERED: ELIQUIS2.5 MG PO (09:04)
[2020-05-12] MEDS ORDERED: KEFLEX500 MG PO (09:04)
--- NOTE | 2020-05-12 13:20 | NUR ---
Discharge instructions given. Patient verbalizes understanding of same. Discharged in stable condition, pt given medication scripts. Pt taken via wheelchair to home accompanied by this internal communications writer. All belongings sent with pt.
--- NOTE | 2020-05-13 10:53 | NUR ---
Final urine culture results show staphylococcus epidermidis >100,000 cfu/ml with sensitivity to doxycycline and resistance to oxacillin. Pt contacted and instructed to discontinue Keflex and start doxycycline per Guera Carroll APRN. Educated pt on administration of new antibiotic and all other questions answered. New rx for doxycycline 100 mg po bid x 7 days called to [facility]. Urine culture and new treatment plan faxed to Dr Givens's office.
== END 2020-05-12 13:20 | disposition home or self-care (01) | DRG 309 ==
LOC: ED 19:54 → ED-I 21:19 → ED 21:28 → ICU 21:29
PROVIDERS: Family Medicine; ADMIT Internal Medicine; ATTEND Internal Medicine
DX: I48.0 Paroxysmal atrial fibrillation (principal); N39.0 Urinary tract infection, site not specified; L03.116 Cellulitis of left lower limb; L03.115 Cellulitis of right lower limb; E87.6 Hypokalemia; I10 Essential (primary) hypertension; E11.9 Type 2 diabetes mellitus without complications; I87.2 Venous insufficiency (chronic) (peripheral); K21.9 Gastro-esophageal reflux disease without esophagitis; T50.996A Underdosing of other drugs, medicaments and biological substances, initial encounter; Z91.128 Patient's intentional underdosing of medication regimen for other reason; Z20.828 Contact with and (suspected) exposure to other viral communicable diseases
CPT/HCPCS: J0692

== ENCOUNTER 2020-07-31 23:06 | Inpatient (IN) | payer MEDICARE, MEDICAID ==
[~2020-07-31] VITALS: Ht 149.9 cm; Wt 90.0 kg
[~2020-07-31 23:06] MED LIST changes: +CHOLESTYRAMINE4 G1 PO; +ESTRACE VAG0.1 MG/GM VA; +KEFLEX500 MG PO
--- NOTE | 2020-07-31 23:06 | NUR ---
PT TO ROOM 10 BY EMS FOR RAPID HEART RATE. GIVEN 25MG CARDIZEM WHICH TOOK HER HR FROM 180-200 TO 120'S PER EMS.
[2020-08-01] VITALS (19 sets, daily range): BP systolic 114–189; BP diastolic 59–133
--- NOTE | 2020-08-01 00:05 | NUR ---
JULIA BIANCHI INITIATED. PT HR GOES FROM 140-160 AFIB RVR. SWABS COLLECTED FOR ADMIT. PT INSISTED SHE HAS BEEN QUARANTINED FOR 6 MONTHS AT HOME BUT PT GOES OUT TO A DRIVE THRU TO GET FOOD AND HAS CAREGIVER WHO COMES INTO HER HOME 3 TIMES A WEEK. PT DENIES ANY COVID SIGNS.
[2020-08-01 00:07] LABS: HEMATOCRIT 41.5 % (37.0-47.0); HEMOGLOBIN 13.2 g/dl (12.0-16.0); IMMATURE GRANULOCYTES 0.1 % (0.0-5.0); MEAN CELL VOLUME 83.8 fL CALC (80.0-100.0); MEAN CORPUSCULAR HGB 26.7 pG CALC (26.0-32.0); MEAN CORPUSCULAR HGB CONC 31.8 g/dL CAL (32.0-36.0); NEUT# 5.36 thou/uL (2.00-7.15); RED BLOOD COUNT 4.95 mill/uL (4.20-5.60); RED CELL DISTRI WIDTH 13.9 % (11.5-15.5)
[2020-08-01] MEDS ORDERED: BACTRIM1 TAB PO (00:16)
[2020-08-01 00:38] LABS: ACT PARTIAL THROMBO TIME 29.6 SECONDS (20.0-32.5); PROTHROMBIN TIME 9.7 SECONDS (9.0-12.5)
[2020-08-01 00:43] LABS: ALBUMIN 4.4 g/dL (3.2-5.0); ALKALINE PHOSPHATASE 104 u/l (38-126); ANION GAP 16 (6-22 (CALC)); BILIRUBIN, TOTAL 0.3 mg/dL (0.0-1.4); BUN 14 mg/dL (8-23); BUN/CREATININE RATIO 20 (12-20 (CALC)); CARBON DIOXIDE 24 mmol/l (22-30); CHLORIDE 106 mmol/l (95-108); CREATININE 0.7 mg/dL (0.5-1.0); GFR > 60 ML/MIN (>=60 (CALC)); GFR FOR AFR.AMER. > 60 ML/MIN (>=60 (CALC)); POTASSIUM 3.8 mmol/l (3.5-5.1); SGOT/AST 28 u/l (9-36); SODIUM 142 mmol/l (137-146); TOTAL PROTEIN 7.6 g/dL (6.3-8.2)
[2020-08-01 00:56] LABS: MYOGLOBIN 28 ng/mL (0 - 62)
--- NOTE | 2020-08-01 01:05 | NUR ---
HR FLUCTUATING FROM 120'S TO 140'S NOW. B/P DOWN TO 131/87. WILL KEEP CARDIZEM AT CURRENT RATE.
--- NOTE | 2020-08-01 02:05 | NUR ---
REPORT GIVEN TO JORDYN FRANCO IN ICU. PT'S HR HOLDING IN 120'S. BP 124/73.
--- NOTE | 2020-08-01 02:10 | NUR ---
Admission Note Report Given to: JORDYN FRANCO Transported by: Wheelchair X Stretcher Transported with: X Nurse Transporter X Patent IV O2 X Epic Anesthesia Analyst Location: X ICU MS2 CARDIZEM DRIP INFUSING AT 10
--- NOTE | 2020-08-01 02:35 | NUR ---
RECEIVED INTO ICU BED 2 FROM ER VIA STRETCHER. PATIENT ABLE TO TRANSFER FROM STRETCHER TO BED WITH ASSIST OF STAFF. ALERT AND ORIENTED X3. RESP SLT LABORED WITH EXERTION. BREATH SOUNDS CLEAR THROUGHOUT. ABD SOFTLY DISTENDED, WITH BOWEL SOUNDS PRESENT. PUREWICK IN PLACE, DRAINING CLEAR YELLOW URINE. NON-PITTING EDEMA OF BILATERAL LOWER LEGS. 1+ PEDAL EDEMA NOTED BILATERALLY. MILD REDNESS NOTED TO BILATERAL LOWER LEGS. IV IN RFA, SITE BENIGN, NS INFUSING AT 10 ML/HR AND CARDIZEM GTT INFUSING AT 10 MG/HR. HAIR SAMPLE MATCHER SHOWS AFIB, VARIABLE RATE. DISCUSED PLAN OF CARE. EXPLAINED USE OF CALL WELLS AND BED CONTROLS.
[2020-08-01 03:15] LABS: URINE BILIRUBIN - DIPSTICK NEGATIVE (NEGATIVE); URINE BLOOD DIPSTICK TRACE-LYSED (NEGATIVE); URINE COLOR YELLOW; URINE GLUCOSE - DIPSTICK NEGATIVE (NEGATIVE); URINE KETONE NEGATIVE (NEGATIVE); URINE LEUK ESTERASE NEGATIVE (NEGATIVE); URINE NITRITE - DIPSTICK NEGATIVE (Negative); URINE PROTEIN - DIPSTICK NEGATIVE (NEG-TRACE); URINE UROBILINOGEN - DIPSTICK 0.2 E.U./dL (0.2)
--- NOTE | 2020-08-01 03:30 | NUR ---
TYLENOL 650 MG PO GIVEN FOR C/O BACK ACHE.
--- NOTE | 2020-08-01 04:00 | NUR ---
HR INCREASED TO 130'S-140'S. CARDIZEM GTT INCREASED TO 15 MG/HR. WILL CONTINUE TO MONITOR CLOSELY.
--- NOTE | 2020-08-01 06:10 | NUR ---
PATIENT IS TALKATIVE AND PLEASANT. VSS. CARDIZEM GTT CONTINUES AT 15 MG/HR. REMAINS IN AFIB.
--- NOTE | 2020-08-01 07:50 | NUR ---
REPORT RECEIVED FROM SIDE PULLER. PT ALERT/ORIENTED X3, DENIES ANY CHEST PAIN OR SOB, STATES JUST HAS A LITTLE BIT OF BACK PAIN, AND WOULD LIKE TO TALK TO DOCTOR ABOUT SOMETHING STRONGER THAN TYLENOL
--- NOTE | 2020-08-01 11:28 | NUR ---
PT RESTING QUIETLY ON BED WATCHING HALLMARK MOVIES, STATES DR. JARA STATES SHE CAN PROBABLY GO HOME TOMORROW, IF HER VITAL SIGNS STABILIZE WITH PO CARDIZEM. A/O X3.
--- NOTE | 2020-08-01 15:39 | NUR ---
PT GIVEN ULTRAM PER REQUEST 30 MIN AGO, AND STATES THAT AT THIS TIME, PAIN HAS DECREASED.
--- NOTE | 2020-08-01 17:45 | NUR ---
PT SITTING UP IN BED EATING DINNER TRAY, DENIES ANY COMPLAINTS AT THIS TIME
--- NOTE | 2020-08-01 19:45 | NUR ---
RESTING WITH EYES CLOSED. RESP NON-LABORED AT REST. BREATH SOUNDS CLEAR THROUGHOUT. ABD SOFTLY DISTENDED WITH BOWEL SOUNDS PRESENT. PUREWICK IN PLACE DRAINING CLEAR PALE YELLOW URINE. NON-PITTING EDEMA OF BILATERAL LOWER LEGS. 1+ PITTING PEDAL EDEMA BILATERALLY. LOWER LEGS REDDENED AND TENDER TO TOUCH. PERIPHERAL PULSES PALPABLE. IV IN RFA WITH NS AT 10 ML/HR AND NS AT 10 MG/HR. IV SITE BENIGN. PHD INTERN CONTINUES IN AFIBWITH VARIABLE HR. DISCUSSED PLAN OF CARE. DENIES NEEDS AT THIS TIME. CALL WELLS IN REACH.
--- NOTE | 2020-08-01 21:15 | NUR ---
TRAMADOL GIVEN ORDERED FOR C/O BACK PAIN.
--- NOTE | 2020-08-01 22:00 | NUR ---
RESTING WITH EYES CLOSED. RESP NON-LABORED. VSS. HR 100-110 CONTINUES IN AFIB. CARDIZEM GTT DECREASED TO 5 MG/HR.
[2020-08-02] VITALS (15 sets, daily range): BP systolic 12–154; BP diastolic 60–84
--- NOTE | 2020-08-02 | NUR ---
NO CHANGES TO REPORT. DOZES ON AND OFF. MONITOR AFIB, HR 80'S-90'S.
--- NOTE | 2020-08-02 01:59 | NUR ---
ASLEEP. RESP NON-LABORED. VSS. AFIB ON MONITOR.
--- NOTE | 2020-08-02 03:00 | NUR ---
HR 70'S-80'S, CONTINUES IN AFIB. CARDIZEM GTT DECREASED TO 2.5 MG/HR.
--- NOTE | 2020-08-02 03:18 | NUR ---
TYLENOL 650 MG PO FOR C/O KNEE PAIN.
--- NOTE | 2020-08-02 04:00 | NUR ---
ASLEEP. RESP NON-LABORED. VSS. GILLETTE AFIB, HR 80'S.
--- NOTE | 2020-08-02 06:00 | NUR ---
TRAMADOL 50 MG PO GIVEN FOR C/O RIGHT KNEE PAIN. VSS. AFIB VARIABLE HR-70'S-90'S. WEANING CARDIZEM GTT-INFUISNG AT 2.5 MG/HR.
[2020-08-02 06:01] LABS: HEMATOCRIT 37.8 % (37.0-47.0); HEMOGLOBIN 11.9 g/dl (12.0-16.0); IMMATURE GRANULOCYTES 0.1 % (0.0-5.0); MEAN CELL VOLUME 84.8 fL CALC (80.0-100.0); MEAN CORPUSCULAR HGB 26.7 pG CALC (26.0-32.0); MEAN CORPUSCULAR HGB CONC 31.5 g/dL CAL (32.0-36.0); NEUT# 3.18 thou/uL (2.00-7.15); RED BLOOD COUNT 4.46 mill/uL (4.20-5.60); RED CELL DISTRI WIDTH 14.1 % (11.5-15.5)
[2020-08-02 06:25] LABS: ANION GAP 8 (6-22 (CALC)); BUN 11 mg/dL (8-23); BUN/CREATININE RATIO 18 (12-20 (CALC)); CARBON DIOXIDE 26 mmol/l (22-30); CHLORIDE 108 mmol/l (95-108); CREATININE 0.6 mg/dL (0.5-1.0); GFR > 60 ML/MIN (>=60 (CALC)); GFR FOR AFR.AMER. > 60 ML/MIN (>=60 (CALC)); MAGNESIUM 1.9 mg/dL (1.6-2.3); POTASSIUM 3.7 mmol/l (3.5-5.1); SODIUM 138 mmol/l (137-146)
--- NOTE | 2020-08-02 08:00 | NUR ---
PT HEART RATE IS STABILIZED IN THE 70'S - 80'S
--- NOTE | 2020-08-02 08:12 | NUR ---
PTS LOWER LEGS REMAIN SWOLLEN, SLIGHTLY RED, PT STATES HAS ARTHRITIS AND SHE HAS TRIED LASIX IN PAST BUT SHE DOESNT WANT TO PEE ALL THE TIME AND SHE STATES SHE WAS GETTING UP TO URINATE EVERY 30 MIN AND GETTING NO REST, SO SHE STATES SHE WILL NOT USE THEM EVER AGAIN.
--- NOTE | 2020-08-02 08:37 | NUR ---
EKG OBTAINED WITH SINUS RHYTHM AT THIS TIME, DR. JARA WAS SHOWN EKG.
--- NOTE | 2020-08-02 10:08 | NUR ---
PT REMAINS AT THIS TIME IN SINUS RYTHMN
[2020-08-02] MEDS ORDERED: TRAMADOL HCL50 MG PO (11:45)
--- NOTE | 2020-08-02 12:58 | NUR ---
PT RESTING QUIETLY ON BED WATCHING TV, ADVISED WE ARE WAITING ON FINAL DISCHARGE INST FROM DOCTOR AND THEN START GETTING HER READY FOR DISCHARGE
[2020-08-02] MEDS ORDERED: KEFLEX500 MG PO (13:38)
--- NOTE | 2020-08-02 14:24 | NUR ---
PT DISCHARGED WITH INST AND ONE RX PRINTED AND ONE SENT TO PHARMACY.
--- NOTE | 2020-08-02 14:45 | NUR ---
PT WHEELCHAIR TO FRONT LOBBY BY STAFF FOR PICKUP BY DAUGHTER, HELPED INTO CAR.
== END 2020-08-02 14:45 | disposition home or self-care (01) | DRG 309 ==
LOC: ED 23:06 → ED-I 23:58 → ED 08-01 01:25 → ICU 08-01 01:26
PROVIDERS: Family Medicine; ADMIT Internal Medicine; ATTEND Internal Medicine
DX: I48.91 Unspecified atrial fibrillation (principal); N39.0 Urinary tract infection, site not specified; L03.116 Cellulitis of left lower limb; L03.115 Cellulitis of right lower limb; E87.6 Hypokalemia; I25.10 Atherosclerotic heart disease of native coronary artery without angina pectoris; I10 Essential (primary) hypertension; E11.9 Type 2 diabetes mellitus without complications; K21.9 Gastro-esophageal reflux disease without esophagitis; G89.29 Other chronic pain; M19.90 Unspecified osteoarthritis, unspecified site; Z79.01 Long term (current) use of anticoagulants; Z79.891 Long term (current) use of opiate analgesic; Z79.899 Other long term (current) drug therapy; Z88.6 Allergy status to analgesic agent; Z87.440 Personal history of urinary (tract) infections

== ENCOUNTER 2020-08-04 09:20 | Inpatient (IN) | payer MEDICARE, MEDICAID ==
[~2020-08-04] VITALS: Ht 149.9 cm; Wt 85.0 kg
[2020-08-04] VITALS (10 sets, daily range): BP systolic 98–141; BP diastolic 56–88
[~2020-08-04 09:20] MED LIST changes: +BACTRIM1 TAB PO; +TRAMADOL HCL50 MG PO
[2020-08-04 09:46] LABS: HEMATOCRIT 41.6 % (37.0-47.0); IMMATURE GRANULOCYTES 0.6 % (0.0-5.0); MEAN CELL VOLUME 84.9 fL CALC (80.0-100.0); MEAN CORPUSCULAR HGB 26.5 pG CALC (26.0-32.0); MEAN CORPUSCULAR HGB CONC 31.3 g/dL CAL (32.0-36.0); NEUT# 4.16 thou/uL (2.00-7.15); RED BLOOD COUNT 4.9 mill/uL (4.20-5.60); RED CELL DISTRI WIDTH 14.2 % (11.5-15.5)
[2020-08-04 10:05] LABS: ACT PARTIAL THROMBO TIME 28.8 SECONDS (20.0-32.5); PROTHROMBIN TIME 10.4 SECONDS (9.0-12.5)
[2020-08-04 10:16] LABS: ALBUMIN 4.1 g/dL (3.2-5.0); ALKALINE PHOSPHATASE 90 u/l (38-126); ANION GAP 13 (6-22 (CALC)); BILIRUBIN, TOTAL 0.4 mg/dL (0.0-1.4); BUN 11 mg/dL (8-23); BUN/CREATININE RATIO 16 (12-20 (CALC)); CARBON DIOXIDE 27 mmol/l (22-30); CHLORIDE 107 mmol/l (95-108); CREATININE 0.7 mg/dL (0.5-1.0); GFR > 60 ML/MIN (>=60 (CALC)); GFR FOR AFR.AMER. > 60 ML/MIN (>=60 (CALC)); POTASSIUM 3.6 mmol/l (3.5-5.1); SGOT/AST 30 u/l (9-36); SODIUM 143 mmol/l (137-146); TOTAL PROTEIN 7.4 g/dL (6.3-8.2)
[2020-08-04 11:21] LABS: URINE BILIRUBIN - DIPSTICK NEGATIVE (NEGATIVE); URINE BLOOD DIPSTICK NEGATIVE (NEGATIVE); URINE COLOR YELLOW; URINE GLUCOSE - DIPSTICK NEGATIVE (NEGATIVE); URINE KETONE NEGATIVE (NEGATIVE); URINE LEUK ESTERASE NEGATIVE (NEGATIVE); URINE NITRITE - DIPSTICK NEGATIVE (Negative); URINE PROTEIN - DIPSTICK NEGATIVE (NEG-TRACE); URINE SPECIFIC GRAVITY 1.015; URINE UROBILINOGEN - DIPSTICK 0.2 E.U./dL (0.2)
[2020-08-05] VITALS (18 sets, daily range): BP systolic 102–143; BP diastolic 56–87
[2020-08-05 05:55] LABS: HEMATOCRIT 36.9 % (37.0-47.0); HEMOGLOBIN 11.8 g/dl (12.0-16.0); IMMATURE GRANULOCYTES 0.3 % (0.0-5.0); MEAN CELL VOLUME 84.6 fL CALC (80.0-100.0); MEAN CORPUSCULAR HGB 27.1 pG CALC (26.0-32.0); NEUT# 3.23 thou/uL (2.00-7.15); RED BLOOD COUNT 4.36 mill/uL (4.20-5.60); RED CELL DISTRI WIDTH 14.3 % (11.5-15.5)
[2020-08-05 06:20] LABS: ALBUMIN 3.5 g/dL (3.2-5.0); ALKALINE PHOSPHATASE 79 u/l (38-126); ANION GAP 9 (6-22 (CALC)); BILIRUBIN, TOTAL 0.3 mg/dL (0.0-1.4); BUN 10 mg/dL (8-23); BUN/CREATININE RATIO 15 (12-20 (CALC)); CALCULATED LDLCHOLESTEROL 137 mg/dL (62-129 (CALC)); CARBON DIOXIDE 25 mmol/l (22-30); CHLORIDE 107 mmol/l (95-108); CHOLESTEROL HDL RATIO 5.1 (<4.4 (CALC)); CREATININE 0.7 mg/dL (0.5-1.0); GFR > 60 ML/MIN (>=60 (CALC)); GFR FOR AFR.AMER. > 60 ML/MIN (>=60 (CALC)); HDL CHOLESTEROL 41 mg/dL (>=40); POTASSIUM 3.7 mmol/l (3.5-5.1); SGOT/AST 19 u/l (9-36); SODIUM 138 mmol/l (137-146); TOTAL CHOLESTEROL 208 mg/dl (0-199); TOTAL PROTEIN 6.1 g/dL (6.3-8.2); TOTAL TRIGLYCERIDES 153 mg/dl (30-149); VLDL CHOLESTROL 31 mg/dl (0-48 (CALC))
[2020-08-06] VITALS (8 sets, daily range): BP systolic 119–138; BP diastolic 63–74
[2020-08-06] MEDS ORDERED: FLECAINIDE50 MG PO (10:39)
[2020-08-06] MEDS ORDERED: LOPRESSOR25 MG PO (10:39)
== END 2020-08-06 14:30 | DRG 309 ==
LOC: ED 09:20 → ED-I 13:45 → ED 13:54 → ICU 13:55
PROVIDERS: Nurse Practitioner; Student in an Organized Health Care Education/Training Program; ADMIT Internal Medicine; ATTEND Internal Medicine
DX: I48.20 Chronic atrial fibrillation, unspecified (principal); I10 Essential (primary) hypertension; E11.9 Type 2 diabetes mellitus without complications; K21.9 Gastro-esophageal reflux disease without esophagitis; M19.90 Unspecified osteoarthritis, unspecified site; R26.9 Unspecified abnormalities of gait and mobility; Z20.828 Contact with and (suspected) exposure to other viral communicable diseases; Z68.41 Body mass index [BMI] 40.0-44.9, adult; E66.9 Obesity, unspecified; Z79.01 Long term (current) use of anticoagulants; Z79.899 Other long term (current) drug therapy; Z88.6 Allergy status to analgesic agent; Z88.8 Allergy status to other drugs, medicaments and biological substances; Z87.440 Personal history of urinary (tract) infections
CPT/HCPCS: Q9967

== ENCOUNTER 2020-08-08 02:23 | Inpatient (IN) | payer MEDICARE, MEDICAID ==
[2020-08-08] VITALS (10 sets, daily range): BP systolic 92–138; BP diastolic 52–87
[~2020-08-08] VITALS: Ht 149.9 cm; Wt 94.1 kg
[~2020-08-08 02:23] MED LIST changes: +FLECAINIDE50 MG PO
--- NOTE | 2020-08-08 02:23 | NUR ---
ARRIVED VIA EMS. AT BEDSIDE. BEULAH.
[2020-08-08 03:08] LABS: HEMATOCRIT 39.2 % (37.0-47.0); HEMOGLOBIN 12.4 g/dl (12.0-16.0); IMMATURE GRANULOCYTES 0.1 % (0.0-5.0); MEAN CELL VOLUME 84.3 fL CALC (80.0-100.0); MEAN CORPUSCULAR HGB 26.7 pG CALC (26.0-32.0); MEAN CORPUSCULAR HGB CONC 31.6 g/dL CAL (32.0-36.0); NEUT# 4.49 thou/uL (2.00-7.15); RED BLOOD COUNT 4.65 mill/uL (4.20-5.60)
[2020-08-08 03:46] LABS: ALBUMIN 3.9 g/dL (3.2-5.0); ALKALINE PHOSPHATASE 87 u/l (38-126); ANION GAP 11 (6-22 (CALC)); BILIRUBIN, TOTAL 0.3 mg/dL (0.0-1.4); BUN 21 mg/dL (8-23); BUN/CREATININE RATIO 28 (12-20 (CALC)); CARBON DIOXIDE 27 mmol/l (22-30); CHLORIDE 106 mmol/l (95-108); CREATININE 0.7 mg/dL (0.5-1.0); GFR > 60 ML/MIN (>=60 (CALC)); GFR FOR AFR.AMER. > 60 ML/MIN (>=60 (CALC)); POTASSIUM 3.9 mmol/l (3.5-5.1); SGOT/AST 19 u/l (9-36); SODIUM 140 mmol/l (137-146)
[2020-08-08 03:57] LABS: MYOGLOBIN 25 ng/mL (0 - 62)
--- NOTE | 2020-08-08 04:10 | NUR ---
PT RESTING. AFIB SLOWER. NO C/O. UNABLE TO VOID AT THIS TIME.
--- NOTE | 2020-08-08 05:20 | NUR ---
PT RESTING. AWAITING DISPO. WATER GIVEN. [id number]
--- NOTE | 2020-08-08 06:42 | NUR ---
PT GIVEN WATER. STILL NO URINE. DAUGHTER CALLED FOR UPDATE.
--- NOTE | 2020-08-08 07:15 | NUR ---
DAUGHTER CALLED BACK TO SPEAK TO ME...WANTS TO HAVE MOTHER TRANSFERRED TO [facility]...ADVISED THAT SHE WOULD HAVE TO SPEAK TO HER DR NOW THAT SHE WAS ADMITTED. ADVISED THAT HER MOTHER DOESN'T MEET CRITERIA FOR TRANSFER.
--- NOTE | 2020-08-08 07:26 | NUR ---
REPORT TO RAQUEL/MED-SURG
--- NOTE | 2020-08-08 07:45 | NUR ---
pt to room 276 via stretcher in stable condition.
--- NOTE | 2020-08-08 08:08 | NUR ---
PT ARRIVED TO [facility] ROOM 276 VIA STRETCHER ACCOMPAINED BY JORDYN DINH. PT AMBULATED TO STRETCHER TO BED WITH LITTLE DIFFICULTY. INTRODUCED SELF TO PT AND DISCUSSED POC. PT IS A/O X3 AND ABLE TO VOICE NEEDS. ASSESSMENT AND VITALS COMPLETED. BP 129/58, HR 109, O2 97% ON ROOM AIR. RESPIRATIONS ARE EVEN AND UNLABORED WITH NO SIGNS OF DISTRESS. HEART RHYTHM IS NORMAL WITH TELE IN PLACE, AFIB PER ER MONITORING. BOWEL SOUNDS ARE ACTIVE IN ALL QUADRNTS, LAST REPORETD BM 08/07/2020. RADIAL PULSES STRONG. PEDAL PULSES WEAK. TRACE EDEMA NOTED TO BILATERAL LOWER EXTREMITIES. #20G EMS IN LAC FLUSHED, SITE APPEARS HEALTHY AND PATENT. PT NOTFIED OF NEEDED URINE SAMPLE. PT REQUEST PUREWHICK TO BE PLACE. RESISTOR TESTING MACHINE OPERATOR NOTFIED OF ALLERGIES, ALLERGY AND FALL RISK BAND APPLIED. PT DENIES OF ANY PAINS OR DISCOMFORTS AT THIS TIME. ALL SAFTEY PRECAUTIONS ARE IN PLACE WITH CALL LIGHT IN REACH. WILL CONTINUE TO MONITOR.
--- NOTE | 2020-08-08 10:20 | NUR ---
DR BORGES AND RY, AAKASH AT BEDSIDE DISCUSSING POC
--- NOTE | 2020-08-08 11:05 | NUR ---
HOME MEDICATIONS ADMINISTEREED. PT TOELRATED WELL. ER TELE MONITORING NOTIFED OF ADMINISTRATION OF FLECAINIDE. RESPIRATIONS REMAINS EVEN AND UNLABORED ON ROOM AIR. PT DENIES OF ANY PAINS. PT DOES REPORT PALPITATIONS ON AND OFF. MD NOTIFED. ALL SAFETY PRECAUTIONS ARE IN PLACE WITH CALL LIGHT IN REACH. WILL CONTINUE TO MONITOR
--- NOTE | 2020-08-08 12:18 | NUR ---
ORDERS FOR TRANSFER TO ICU. CALLED TO OBTAIN BED. TECHNOLOGY TRAINING ASSOCIATE NOTFIED THAT HOUSEKEEPING WAS CLEANING ROOM AND WOULD NOTFIE TECHNOLOGY TRAINING ASSOCIATE WHEN AVAILABLE.
--- NOTE | 2020-08-08 13:22 | NUR ---
REPORT CALLED TO Hans REN RN
--- NOTE | 2020-08-08 13:31 | NUR ---
PT TRANSFERED TO ICU BED 6 VIA BED IN STABLE CONDITION ACCOMPAINED BY SCOTT RN
--- NOTE | 2020-08-08 14:16 | NUR ---
PT RECEIVED FROM MED/SURG VIA BED ACCOMPANIED BY EDELMIRA COBB. PT IS ALERT, ORIENTED X 3. LUNGS CLEAR THROUGHOUT, RA. MONITOR SHOWS ATRIAL FIBRILLATION AT RATE IN THE 80-90s. AMIODARONE DRIP STARTED AT THIS TIME, RATE 1 MG/MIN FOR 6 HOURS. BLOOD PRESSURE LOW, BUT STILL ALLOWS FOR MED ADMINISTRATION.
--- NOTE | 2020-08-08 16:02 | NUR ---
PT CONTINUES WITH AMIODARONE DRIP, NO CHANGE IN RHYTHM NOTED. AFIB SEEN ON MONITORS WITH OCCASIONAL PAUSES THAT LOOK REGULAR. PT DENIES CHEST PAIN OR SHORTNESS OF BREATH.
[2020-08-08 16:45] LABS: URINE BILIRUBIN - DIPSTICK NEGATIVE (NEGATIVE); URINE BLOOD DIPSTICK NEGATIVE (NEGATIVE); URINE COLOR YELLOW; URINE GLUCOSE - DIPSTICK NEGATIVE (NEGATIVE); URINE KETONE NEGATIVE (NEGATIVE); URINE LEUK ESTERASE NEGATIVE (NEGATIVE); URINE NITRITE - DIPSTICK NEGATIVE (Negative); URINE PROTEIN - DIPSTICK NEGATIVE (NEG-TRACE); URINE SPECIFIC GRAVITY 1.015; URINE UROBILINOGEN - DIPSTICK 0.2 E.U./dL (0.2)
--- NOTE | 2020-08-08 18:16 | NUR ---
PT PROVIDED ZOFRAN FOR ANXIETY, "HEEBIE JEEBIES", STATES IMPROVED. PT DID HAVE URINE, BUT SUCTION CANNISTER DID NOT WORK PROPERLY, TO BE CLEANED.
--- NOTE | 2020-08-08 20:15 | NUR ---
RESTING IN BED, WATCHING TV. TALKATIVE AND PLEASANT. RESP NON-LABOREDAT REST. BREATH SOUNDS DIMIISHED THROUGHOUT LUNG DELGADO, ESSENTIALLY CLEAR. NON-PITTING EDEMA OF BLE. PERIPERAL PULSES WEAKLY PALPABLE. IV IN LAC, CORDARONE GTT AT 0.5 MG AMD MS AT 20 ML/HR. IV SITE BENIGN. MONITOR SHOWS AFIB WITH VARIABLE HR. DISCUSSED PLAN OF CARE. DENIES NEEDS AT THIS TIME. CALL WELLS IN REACH.
--- NOTE | 2020-08-08 22:00 | NUR ---
WATCHING TV. REQUEST PAIN MED, AWAITING FOR MED TO BE PROFILED.
--- NOTE | 2020-08-08 23:05 | NUR ---
MEDICATED WITH ULTRAM 50 MG PO FOR C/O BACK PAIN.
[2020-08-09] VITALS (19 sets, daily range): BP systolic 107–148; BP diastolic 53–78
--- NOTE | 2020-08-09 00:05 | NUR ---
RESTIGN WITH EYES CLOSED. RESP NON-LABORED. VSS. AFIB ON MONITOR.
--- NOTE | 2020-08-09 00:51 | NUR ---
MONITOR SHOWING SB-SR AT THIS TIME. WILL CONTINUE TO MONITOR CLOSELY.
--- NOTE | 2020-08-09 02:00 | NUR ---
SLEEPING. RESP NON-LABORED. VSS. SR ON MONITOR.
--- NOTE | 2020-08-09 04:25 | NUR ---
NO CHANGES TO REPORT. RESTING QUIETLY WITH EYES CLOSED. RESP NON-LABORED. MONITOR SR. AMIODARONE CONTINUES TO INFUSE AT 0.5 MG/MIN.
--- NOTE | 2020-08-09 06:00 | NUR ---
NO CHANGES TO REPORT. VSS.
[2020-08-09 06:01] LABS: ANION GAP 8 (6-22 (CALC)); BUN 14 mg/dL (8-23); BUN/CREATININE RATIO 20 (12-20 (CALC)); CARBON DIOXIDE 27 mmol/l (22-30); CHLORIDE 109 mmol/l (95-108); CREATININE 0.7 mg/dL (0.5-1.0); GFR > 60 ML/MIN (>=60 (CALC)); GFR FOR AFR.AMER. > 60 ML/MIN (>=60 (CALC)); MAGNESIUM 1.9 mg/dL (1.6-2.3); POTASSIUM 4.2 mmol/l (3.5-5.1); SODIUM 139 mmol/l (137-146)
--- NOTE | 2020-08-09 06:45 | NUR ---
RECIEVED REPORT FROM JORDYN MALHOTRA. ASSUMED PT CARE.
--- NOTE | 2020-08-09 07:30 | NUR ---
PT A&OX4, ABLE TO MAKE NEEDS KNOWN. REMAINS SR ON TELEMETRY, HR 60. PT DENIES CP, SOB OR DISTRESS AT THIS TIME. REPSIRATIONS EVEN/UNLABORED, LS DIMINISHED THROUGHOUT, PUREWICK IN PLACE, ABDOMEN DISTENDED, NON- TENDER, BSX4 ACTIVE. AMIODORONE INFUSING LAC, NO S/S OF INFILTRATION NOTED AT SITE. PT STATED BACK PAIN 04/06, WILL MEDICATE ORDERED. CALL LIGHT IN REACH. WILL MONITOR.
--- NOTE | 2020-08-09 09:00 | NUR ---
PT RESTING IN BED, NO DISTRESS NOTED AT THIS TIME. CALL LIGHT IN REACH. WILL MONITOR.
--- NOTE | 2020-08-09 10:00 | NUR ---
PT RESTING IN BED WATCHING TV, NO CHANGE TO REPORT.
--- NOTE | 2020-08-09 11:57 | NUR ---
PT REQUESTED SOMETHING FOR NAUSEA, REQUEST GRANTED. PT EATING LUNCH.
--- NOTE | 2020-08-09 14:02 | NUR ---
PT RESTING IN BED WITH EYES CLOSED, RESPIRATIONS EVEN/UNLABORED. CALL LIGHT IN REACH. WILL MONITOR.
--- NOTE | 2020-08-09 14:05 | NUR ---
AMIODARONE STOPPED ORDERED, COMPLETED 24HRS. SR ON TELEMETRY.
--- NOTE | 2020-08-09 16:24 | NUR ---
PT DAUGHTER CALLED WITH CODE, UPDATE GIVEN.
--- NOTE | 2020-08-09 18:00 | NUR ---
PT RESTING IN BED, OFFERS NO COMPLAINTS AT THIS TIME. CALL LIGHT IN REACH.
--- NOTE | 2020-08-09 19:12 | NUR ---
PT AWAKE AND ALERT WATCHING TV. CALL WELLS IN REACH.
--- NOTE | 2020-08-09 20:00 | NUR ---
PT AWAKE ALERT WATCHING TV. SR 60. PT REQUESTED ZOFRAN FOR NAUSEA, MEDICATED PER MAR. CALL WELLS IN REACH.
--- NOTE | 2020-08-09 22:00 | NUR ---
PT WITH EYES CLOSED, SB 57. CALL WELLS IN REACH.
--- NOTE | 2020-08-09 23:45 | NUR ---
PT C/O PAIN AT L AC IV SITE. REDNESS NOTED MEDIAL TO SITE. REMOVED IV SITE, STARTED NEW IV #22 R WRIST.
[2020-08-10] VITALS (20 sets, daily range): BP systolic 101–159; BP diastolic 50–116
--- NOTE | 2020-08-10 | NUR ---
PT ON BEDPAN, NO BM. REMOVED FROM BEDPAN BY SUPERVISOR FEED HOUSE. SR 62 CALL WELLS IN REACH.
--- NOTE | 2020-08-10 02:00 | NUR ---
PT WITH EYES CLOSED, SB 59. CALL WELLS IN REACH.
--- NOTE | 2020-08-10 02:23 | NUR ---
PT C/O R KNEE PAIN, REQUESTED PAIN MED. MEDICATED PER OCT.
--- NOTE | 2020-08-10 04:00 | NUR ---
PT ON BEDPAN, NO BM, REMOVED GAINES. 300CC URINE IN PUREWICK VAC. CALL WELLS IN REACH.
--- NOTE | 2020-08-10 06:00 | NUR ---
PT WITH EYES CLOSED, NO DISTRESS NOTED. SR 62 CALL WELLS IN REACH.
--- NOTE | 2020-08-10 07:25 | NUR ---
PATIENT AWAKE, ORIENTED X4. PATIENT COMPLAINS OF ROOM BEING COLD, SHE HAS R-KNEE ARTHRITIS PAIN. NURSE ASSESSMENT PERFORMED. PATIENT ABLE TO PULL SELF UP IN BED. DOPPLER USED FOR LEFT PEDAL PULSE, PRESENT. R-WRIST IV INTACT, FLUSHES PROPERLY, SALINE LOCKED. SR ON TELEMETRY. PUREWICK IN PLACE, URINE YELLOW/CLEAR. DISCUSSED POC. NOTIFIED PATIENT I WILL PROVIDE PAIN MEDICATION, SOON I CAN WILL CALL MAINTENANCE FOR COLD AIR IN ROOM, AND PROVIDE A HEAT PACK FOR THE RED, SWOLLEN ORALIA FROM [facility] IV SITE REMOVED.
--- NOTE | 2020-08-10 07:45 | NUR ---
DR BORGES AND THONG AMIN AT BEDSIDE TO DISCUSS POC.
--- NOTE | 2020-08-10 09:42 | NUR ---
PATIENT MOVED TO ICU BED 7 DUE TO SHE COMPLAINS OF ROOM BEING COLD AND SHE IS NOT ABLE TO EAT IN A COLD ROOM, HAS ARTHRITIS PAIN, AND HER SINUSES. ALL BELONGINGS WITH PATIENT. CALL LIGHT WITHIN REACH.
--- NOTE | 2020-08-10 10:14 | NUR ---
CONSULT CALLED TO DR XIONG'S OFFICE.
--- NOTE | 2020-08-10 10:16 | NUR ---
RT CALLED FOR EKG ORDER PLACED.
--- NOTE | 2020-08-10 10:27 | NUR ---
RT IN ROOM FOR EKG
--- NOTE | 2020-08-10 10:32 | NUR ---
EKG SHOWN TO ELY AMIN.
--- NOTE | 2020-08-10 11:23 | NUR ---
PATIENT CALLED TO [facility] ER FOR COMPLAINT OF HEPA FILTER IS LOUD AND IS GIVING HER A HEADACHE. HEPAFILTER TURNED DOWN TO LOW.
--- NOTE | 2020-08-10 12:04 | NUR ---
VIKTOR NOW SITS ON RECLINER, WAS ABLE TO TRANSFER WITH WALKER. NO ACUTE DISTRESS SHOWN. CALL LIGHT WITHIN REACH.-
--- NOTE | 2020-08-10 16:15 | NUR ---
PATIENT GIVEN TRAMADOL FOR PAIN. IS AWAKE. NO OTHER NEEDS AT THIS TIME. CALL LIGHT WITHIN.
--- NOTE | 2020-08-10 18:11 | NUR ---
ICE CREAM GIVEN PER PATIENT REQUEST, SHE REPORTS SHE IS ABLE TO HAVE A BM WITH CHOCOLATE ICE CREAM.
--- NOTE | 2020-08-10 18:22 | NUR ---
ASSISTED WITH SETTING UP DINNER TRAY, PATIENT ABLE TO PULL HERSELF UP. ALSO COMPLAINS OF LEFT UPPER ARM PAIN FROM LAC SITE, IT IS RED/SWOLLEN, HEAT PACKS PROVIDED AND WILL APPLY AFTER SHE IS DONE WITH HER DINNER.
--- NOTE | 2020-08-10 20:30 | NUR ---
awake. watching tv. nad. cardiac rn shows sinus rhythm hr 62. #22 rt wrist saline lock. po fluids taken well. purewick cath in place. urine clear yellow. fall precautions cont. heat pack applied to lac per request.
--- NOTE | 2020-08-10 22:00 | NUR ---
watching tv. nad. surveillance monitor shows sinus rabia hr 58.
[2020-08-11] VITALS (19 sets, daily range): BP systolic 109–161; BP diastolic 59–105
--- NOTE | 2020-08-11 00:01 | NUR ---
eyes closed. nad. threat monitoring analyst shows sinus rabia hr 58.
--- NOTE | 2020-08-11 02:00 | NUR ---
resting quietly. resps even & unlabored. night monitor shows sinus rabia hr 56.
--- NOTE | 2020-08-11 04:00 | NUR ---
eyes closed. nad. director of cardiac cath lab shows sinus rabia hr 58.
--- NOTE | 2020-08-11 06:00 | NUR ---
eyes closed. nad. monitor and storage bin tender shows sinus rhythm hr 90.
--- NOTE | 2020-08-11 07:20 | NUR ---
dr box in room to discuss poc and assess patient.
--- NOTE | 2020-08-11 09:29 | NUR ---
ZOFRAN GIVEN FOR COMPLAINTS OF NAUSEA, ABLE TO SWALLOW MEDICATIONS. CALL LIGHT WITHIN REACH.
--- NOTE | 2020-08-11 09:40 | NUR ---
NURSE PRACTITIONER ANTONETTE NOTIFIED OF RHYTHM CHANGE THIS MORNING ON PATIENT. EKG ORDERED FOR RHYTHM CHANGE.
--- NOTE | 2020-08-11 12:37 | NUR ---
PATIENT LAYS IN HIGH CARUSO'S. COMPLAINS OF NAUSEA, SHE "MIGHT NEED TO HAVE A BM." CALL LIGHT WITHIN REACH.
--- NOTE | 2020-08-11 14:00 | NUR ---
CALLED AND SPOKE TO DR XIONG TO NOTIFY OF HEART RHYTHM AND HEART RATE, NEW ORDERS GIVEN.
--- NOTE | 2020-08-11 14:27 | NUR ---
DIGOXIN IV 0.25 MG X1 GIVEN PER DR XIONG. WILL CONTINUE TO MONITOR.
--- NOTE | 2020-08-11 15:25 | NUR ---
PATIENT RESTS WITH EYES CLOSED. NO ACUTE DISTRES SHOWN, HR LOW 100'S TO 130 BPM.
--- NOTE | 2020-08-11 18:23 | NUR ---
DR BORGES CALLED HERE, UPDATES GIVEN WELL NOTIFIED OF PATIENT'S RHYTHM AND HEART RATE.
--- NOTE | 2020-08-11 18:28 | NUR ---
DR XIONG NOTIFIED OF PATIENT RHYTHM CONTINUES TO BE IN ATRIAL FLUTTER AND HEART RATE 120'S TO 150'S. NEW ORDERS RECEIVED.
--- NOTE | 2020-08-11 19:45 | NUR ---
awake. watching tv. denies distress. cardiac exercise specialist shows a flutter hr 136. #22 rt wrist saline lock. po fluids taken well. pure wick cath in place. urine clear yellow. fall precautions cont.
--- NOTE | 2020-08-11 22:10 | NUR ---
dr box called this copywriter. updated on pts condition. instructed to give pt lanoxin now.
[2020-08-12] VITALS (19 sets, daily range): BP systolic 102–156; BP diastolic 57–87
--- NOTE | 2020-08-12 00:01 | NUR ---
eyes closed. no distress. traffic monitor specialist shows a flutter hr 116.
--- NOTE | 2020-08-12 02:00 | NUR ---
resting quietly. resps even & unlabored. nad. library monitor shows a flutter hr 109.
--- NOTE | 2020-08-12 04:00 | NUR ---
eyes closed. no distress. athletic monitor shows a flutter hr 90.
--- NOTE | 2020-08-12 05:41 | NUR ---
rt here. ekg obtained. lab here. blood drawn.
[2020-08-12 07:00] LABS: ANION GAP 9 (6-22 (CALC)); BUN 11 mg/dL (8-23); BUN/CREATININE RATIO 17 (12-20 (CALC)); CARBON DIOXIDE 29 mmol/l (22-30); CHLORIDE 105 mmol/l (95-108); CREATININE 0.6 mg/dL (0.5-1.0); GFR > 60 ML/MIN (>=60 (CALC)); GFR FOR AFR.AMER. > 60 ML/MIN (>=60 (CALC)); MAGNESIUM 1.9 mg/dL (1.6-2.3); POTASSIUM 4.4 mmol/l (3.5-5.1); SODIUM 138 mmol/l (137-146)
--- NOTE | 2020-08-12 07:00 | NUR ---
REPORT RECEIVED FROM YAA TORIBIO.
--- NOTE | 2020-08-12 07:30 | NUR ---
PT RESTING IN SEMI FOWLERS POSITION,A&O X3;VS OBTAINED AND ASSESSMENT COMPLETED;PT DENIES ANY CURRENT PAIN OR DISCOMFORTS,PAIN SCALE AND REPORTING EDUCATED;RESPIRATIONS EVEN AND UNLABORED ON RA,CLEAR LUNG SOUNDS;ABDOMEN SOFT ON PALPATION AND ACTIVE IN ALL 4 QUADRANTS;PUREWICK CATHETER IN PLACE DRAINING CLEAR/YELLOW URINE;WEAK PEDAL PULSES;GENERALIZED BRUISING NOTED THROUGHOUT AND REDDENING NOTED TO ABDOMINAL FOLDS,SKIN OTHERWISE INTACT;CARDIAC MONITORING IN PLACE READING AFLUTTER 90'S-100'S;#22G TO RIGHT WRIST FLUSHED AND PATENT,SITE APPEARS HEALTHY;PT DENIES ANY ADDITIONAL NEEDS AT THIS TIME AND IS ENCOURAGED TO CALL FOR ASSISTANCE IF NEEDED;FALL PRECAUTIONS IN PLACE WITH BED IN THE LOWEST POSITION AND CALL LIGHT IN REACH;FREQUENT ROUNDS MADE.
--- NOTE | 2020-08-12 07:34 | NUR ---
AT BEDSIDE DISCUSSING POC.
--- NOTE | 2020-08-12 08:50 | NUR ---
NOTIFIED OF ELEVATED HEART RATE. AFLUTTER 115'S-160'S. PT REPORTS SOB AT TIMES BUT DENIES ANY PAIN OR DISCOMFORTS. NO NEW ORDERS RECEIVED.FREQUENT ROUNDS MADE.
--- NOTE | 2020-08-12 10:10 | NUR ---
CALL RECEIVED FROM . ORDER OBTAINED TO ADMINISTER METOPROLOL 50MG PO X1 NOW.PT NOTIFIED AND VERBALIZES UNDERSTANDING. HEART RATE REMAINS AFLUTTER 100'S-150'S;FREQUENT ROUNDS MADE.
--- NOTE | 2020-08-12 11:15 | NUR ---
PT RESTING IN SEMI FOWLERS POSITION;RESPIRATIONS REMAIN EVEN AND UNLABORED ON RA;PT DENIES ANY CURRENT PAIN OR DISCOMFORTS;IV SITE PATENT;CARDIAC MONITORING IN PLACE READING AFLUTTER 90'S-130'S;PT MEDICATED WITH X1 LOPRESSOR 50MG PO PER MD ORDER;PT DENIES ANY ADDITIONAL NEEDS AT THIS TIME;ENCOURAGED TO CALL FOR ASSISTANCE IF NEEDED;CALL LIGHT WITHIN REACH;FREQUENT ROUNDS MADE.
--- NOTE | 2020-08-12 12:35 | NUR ---
CALL RECEIVED FROM . PT TO BE TRANSPORTED [facility] WITH ACCEPTING MD AREVALO FOR CARDIAC ABLATION.
--- NOTE | 2020-08-12 12:44 | NUR ---
CALL RECEIVED FROM CJ AT [facility] REQUESTING FACE SHEET. CASE MANAGEMENT NOTIFIED OF TRANSFER. FACE SHEET TO BE FAX BY CASE MANAGEMENT.
--- NOTE | 2020-08-12 13:05 | NUR ---
PT REPORTS GENERALIZED PAIN RATING 8/10 ON THE PAIN SCALE AND REQUESTS PAIN MEDICATION, PT TO BE MEDICATED WITH PRN ULTRAM 50MG PO;RESPIRATIONS EVEN AND UNLABORED ON RA;HEART RATE AFLUTTER 70'S ON THE MONITOR;PT DENIES ANY ADDITIONAL NEEDS;CALL LIGHT IN REACH;FREQUENT ROUNDS MADE.
--- NOTE | 2020-08-12 13:11 | NUR ---
CALL RECEIVED FROM BRENDEN AT [facility]. PT TO BE TRANSPORTED TO [facility] BY 8AM FOR TRAVELIFT OPERATOR HOLDING. CASE MANAGEMENT NOTIFIED.
--- NOTE | 2020-08-12 13:20 | NUR ---
SPOKE WITH PATEINT ABOUT NOTIFYING HER FAMILY ABOUT TRANSFER. PT REPORTS THAT HER DAUGHTER CAN NOT TALK DUE TO RECENT SX AND THAT SHE HAS NOTIFIED THEM VIA TEXT. PT REPORTS THAT THERE IS NO NEED FOR WRITTER TO CALL REGARDING POC.
--- NOTE | 2020-08-12 14:49 | NUR ---
TRANSPORTATION BY [facility] SET UP. SPOKE WITH QUINN. PT TO BE PICKED UP AT APPROX 5AM FOR TRANSPORT TO [facility].
--- NOTE | 2020-08-12 14:54 | NUR ---
BRENDEN AT [facility] NOTIFIED OF SCHOOL PSYCHOLOGY PROFESSOR TIME BY [facility] FOR TRANSPORT.
--- NOTE | 2020-08-12 15:40 | NUR ---
PT RESTING IN SEMI FOWLERS POSITION;RESPIRATIONS EVEN AND UNLABORED ON RA;PT DENIES ANY CURRENT PAIN OR DISCOMFORTS;CARDIAC MONITORING IN PLACE READING AFLUTTER 70'-80'S;IV SITE PATENT;INFORMED CONSENT OBTAINED AT THIS TIME FOR TRANSFER TO [facility], ALL QUESTIONS ANSWERED AND PT VERBALIZES UNDERSTANDING;PT DENIES ANY ADDITIONAL NEEDS;CALL LIGHT IN REACH;FREQUENT ROUNDS MADE.
--- NOTE | 2020-08-12 16:20 | NUR ---
PT REPORTS BACK PAIN RATING 9/10 ON THE PAIN SCALE AND REQUESTS PAIN MEDICATION, PT TO BE MEDICATED WITH PRN TYLENOL 650MG PO AT THIS TIME;WILL CONTINUE TO MONITOR FOR EFFECTIVENESS
--- NOTE | 2020-08-12 17:20 | NUR ---
PT RESTING IN SEMI FOWLERS POSITION;RESPIRATIONS EVEN AND UNLABORED ON RA;PT DENIES ANY CURRENT NEEDS;IV SITE PATENT;PUREWICK IN PLACE;DINNER TRAY PROVIDED;PT DENIES ANY ADDITIONAL NEEDS AND IS ENCOURAGED TO CALL FOR ASSISTANCE IF NEEDED;CALL LIGHT IN REACH;FREQUENT ROUNDS MADE.
--- NOTE | 2020-08-12 19:15 | NUR ---
RECEIVED PT AAOX4, NO C/O PAIN OR SOB AT THIS TIME. CALL WELLS IN REACH.
--- NOTE | 2020-08-12 20:00 | NUR ---
PT AWAKE AND ALERT, TALKING ON PHONE. A-FIB 82 NO DISTRES NOTED, CALL WELLS IN REACH.
--- NOTE | 2020-08-12 21:45 | NUR ---
PT REQUESTED ULTRAM FOR 8/10 BACK PAIN. MEDICATED PER OCT.
--- NOTE | 2020-08-12 22:00 | NUR ---
PT IN BED WITH EYES CLOSED, RESPONDS TO VERBAL STIMULI. PT IN A FIB AT 78. NO DISTRESS NOTED. CALL WELLS IN REACH.
--- NOTE | 2020-08-13 | NUR ---
PT INFORMED TO REMAIN NPO FOR AM PROCEDURE. PT VERBALIZED UNDERSTANDING.
[2020-08-13 01:00] VITALS: BP 120/83
--- NOTE | 2020-08-13 02:00 | NUR ---
PT REPOSITIONED IN BED. REMAINS IN A FLUTTER. NO DISTRESS NOTED. CALL WELLS IN REACH.
[2020-08-13 03:00] VITALS: BP 132/62
--- NOTE | 2020-08-13 04:00 | NUR ---
PT AWAKE AND ALERT, LEAD APPLIER ASSISTING PT FOR TRANSFER.
[2020-08-13 04:45] VITALS: BP 119/72
--- NOTE | 2020-08-13 05:28 | NUR ---
[facility] AT BEDSIDE. PT TRANSFERRED TO [facility] STRETCHER WITHOUT INCIDENT. PT HAS ALL BELONGINGS.
== END 2020-08-13 05:30 | disposition short-term general hospital (02) | DRG 310 ==
LOC: ED 02:23 → ED-I 06:50 → ED 07:05 → MS2 07:06 → ICU 13:38
PROVIDERS: Emergency Medicine; ADMIT Internal Medicine; ATTEND Internal Medicine
DX: I48.0 Paroxysmal atrial fibrillation (principal); I48.92 Unspecified atrial flutter; I10 Essential (primary) hypertension; K21.9 Gastro-esophageal reflux disease without esophagitis; M19.90 Unspecified osteoarthritis, unspecified site; K59.00 Constipation, unspecified; Z87.11 Personal history of peptic ulcer disease; Z87.440 Personal history of urinary (tract) infections; Z79.01 Long term (current) use of anticoagulants; Z20.828 Contact with and (suspected) exposure to other viral communicable diseases
CPT/HCPCS: J0282; J1160

== ENCOUNTER 2021-01-09 09:51 | Emergency (ER) | payer MEDICARE, MEDICAID ==
[~2021-01-09] VITALS: Ht 149.9 cm; Wt 86.3 kg
[2021-01-09 10:37] LABS: HEMATOCRIT 38.8 % (37.0-47.0); HEMOGLOBIN 11.9 g/dl (12.0-16.0); IMMATURE GRANULOCYTES 0.6 % (0.0-5.0); MEAN CELL VOLUME 84.5 fL CALC (80.0-100.0); MEAN CORPUSCULAR HGB 25.9 pG CALC (26.0-32.0); MEAN CORPUSCULAR HGB CONC 30.7 g/dL CAL (32.0-36.0); NEUT# 4.73 thou/uL (2.00-7.15); RED BLOOD COUNT 4.59 mill/uL (4.20-5.60); RED CELL DISTRI WIDTH 14.6 % (11.5-15.5)
[2021-01-09 10:50] LABS: ALBUMIN 3.8 g/dL (3.2-5.0); ALKALINE PHOSPHATASE 74 u/l (38-126); ANION GAP 14 (6-22 (CALC)); BILIRUBIN, TOTAL 0.8 mg/dL (0.0-1.4); BUN 9 mg/dL (8-23); BUN/CREATININE RATIO 10 (12-20 (CALC)); CARBON DIOXIDE 27 mmol/l (22-30); CHLORIDE 99 mmol/l (95-108); CREATININE 0.9 mg/dL (0.5-1.0); GFR > 60 ML/MIN (>=60 (CALC)); GFR FOR AFR.AMER. > 60 ML/MIN (>=60 (CALC)); POTASSIUM 3.3 mmol/l (3.5-5.1); SGOT/AST 19 u/l (9-36); SODIUM 136 mmol/l (137-146); TOTAL PROTEIN 6.7 g/dL (6.3-8.2)
[2021-01-09 11:03] LABS: MYOGLOBIN 36 ng/mL (0 - 62)
[2021-01-09] MEDS ORDERED: CIPROFLOXACN500 MG PO (12:05)
[2021-01-09] MEDS ORDERED: DILTIAZEM90 M1 PO (12:23)
[2021-01-09] MEDS ORDERED: LASIX 40 MG TAB40 MG PO (12:23)
[2021-01-09] MEDS ORDERED: DIGOXIN0.125 MG PO (12:25)
[2021-01-09 13:02] LABS: URINE BILIRUBIN - DIPSTICK NEGATIVE (NEGATIVE); URINE BLOOD DIPSTICK NEGATIVE (NEGATIVE); URINE COLOR YELLOW; URINE GLUCOSE - DIPSTICK NEGATIVE (NEGATIVE); URINE KETONE NEGATIVE (NEGATIVE); URINE LEUK ESTERASE NEGATIVE (NEGATIVE); URINE PROTEIN - DIPSTICK NEGATIVE (NEG-TRACE); URINE SPECIFIC GRAVITY <=1.005; URINE UROBILINOGEN - DIPSTICK 0.2 E.U./dL (0.2)
[2021-01-09 13:17] LABS: URINE NITRITE - DIPSTICK NEGATIVE (Negative)
[2021-01-09 14:05] VITALS: BP 134/64
== END 2021-01-09 15:30 | disposition home or self-care (01) ==
LOC: ED 09:51
PROVIDERS: Emergency Medicine
DX: R53.1 Weakness (principal); R60.0 Localized edema; I10 Essential (primary) hypertension; E11.9 Type 2 diabetes mellitus without complications; I48.91 Unspecified atrial fibrillation; Z95.0 Presence of cardiac pacemaker

== ENCOUNTER 2021-06-20 09:29 | Emergency (ER) | payer MEDICARE, MEDICAID ==
[~2021-06-20] VITALS: Ht 149.9 cm; Wt 83.6 kg
[~2021-06-20 09:29] MED LIST changes: +CIPROFLOXACN500 MG PO; +DIGOXIN0.125 MG PO; +LASIX 40 MG TAB40 MG PO
[2021-06-20] MEDS ORDERED: POTASSI19 PO (10:35)
[2021-06-20] MEDS ORDERED: BUMETANIDE1 MG PO (10:45)
[2021-06-20 12:53] VITALS: BP 138/80
[2021-06-20] MEDS ORDERED: ATIVAN0.5 MG PO (13:08)
[2021-06-20] MEDS ORDERED: LORTAB 5/3255 MG PO (13:08)
== END 2021-06-20 13:25 | disposition home or self-care (01) ==
LOC: ED 09:29
DX: M62.838 Other muscle spasm (principal); M25.512 Pain in left shoulder; M19.90 Unspecified osteoarthritis, unspecified site; I10 Essential (primary) hypertension; I48.91 Unspecified atrial fibrillation; Z95.0 Presence of cardiac pacemaker
CPT/HCPCS: J2060